=== PATIENT | male | born 1950 | race Caucasian/White ===

== ENCOUNTER 2019-09-01 11:04 | Observation (INO) ==
[2019-09-01 13:22] VITALS: BMI 45.1
[2019-09-01] MEDS ORDERED: HumuLIN R SC PRN (13:42)
[2019-09-01] MEDS: LASIX IVP SCH ×2 (14:15→20:18)
[2019-09-01 14:21] LABS: BASOPHILS % (AUTO) 0.6 % (0.2-1.0); EOSINOPHILS % (AUTO) 0.8 % (0.9-2.9); HEMATOCRIT 30.6 % (42.0-54.0); HEMOGLOBIN 10.3 g/dL (13.5-18.0); LYMPHOCYTES # (AUTO) 0.3 X10^3/uL (1.3-2.9); LYMPHOCYTES % (AUTO) 14.2 % (21.0-51.0); MEAN CORPUSCULAR HEMOGLOBIN 34.3 pg (27.0-34.0); MEAN CORPUSCULAR HGB CONC 33.8 g/dL (33.0-35.0); MEAN CORPUSCULAR VOLUME 101.3 fL (80.0-100.0); MEAN PLATELET VOLUME 8.8 fL (7.4-11.0); MONOCYTES # (AUTO) 0.3 x10^3/uL (0.3-0.8); MONOCYTES % (AUTO) 13.6 % (0.0-13.0); NEUTROPHILS # (AUTO) 1.7 x10^3/uL (2.2-4.8); NEUTROPHILS % (AUTO) 70.8 % (42.0-75.0); PLATELET COUNT 141 X10^3/uL (150.0-450.0); RED BLOOD COUNT 3.01 X10^6/uL (4.7-6.0); RED CELL DISTRIBUTION WIDTH 16.3 % (11.6-16.5); WHITE BLOOD COUNT 2.4 X10^3/uL (3.6-10.0)
--- NOTE | 2019-09-01 14:31 | RAD ---
HISTORY: CHF. Prior history of COPD, hypertension and CHF. Prior surgical history of CABG, heart valve and spine surgery. Study: Single-view chest Comparison: 08/11/2019. Findings: There are again changes of CABG median sternotomy sutures. The trachea is midline. Examination is very expiratory with accentuation of transverse cardiac diameter and crowding of bronchovascular markings. There is cardiomegaly. Mild pulmonary vascular congestion is seen. No evidence CHF or consolidation is seen. There is no evidence of pleural fluid or pneumothorax. Osseous structures intact. IMPRESSION: Postsurgical changes as noted above. Cardiomegaly and pulmonary vascular congestion. Both of these findings are likely accentuated by the very expiratory phase of the chest image. No consolidation or CHF is seen. Reported By:
[2019-09-01 14:36] LABS: BAND NEUTROPHILS % 2 % (0-10); PLATELET MORPHOLOGY COMMENT NORMAL (NORMAL)
[2019-09-01 14:44] LABS: ABG BASE EXCESS 10.5 mmol/L (-2.0-2.0)
[2019-09-01 14:44] LABS: ALANINE AMINOTRANSFERASE 39 Units/L (12-78); ALBUMIN 3.2 g/dL (3.4-5.0); ALKALINE PHOSPHATASE 69 Units/L (46-116); ASPARTATE AMINO TRANSFERASE 39 Units/L (15-37); BLOOD UREA NITROGEN 17 mg/dL (7-18); CALCIUM 8.5 mg/dL (8.5-10.1); CARBON DIOXIDE 35.1 mmol/L (21-32); CHLORIDE 100 mmol/L (98-107); CKMB % 1.5 % (<4); COR CA(FOR HYPOALB) 9.1 mg/dL (8.5-10.1); CREATINE KINASE 68 Units/L (39-308); CREATINE KINASE MB < 1.0 ng/mL (0-4.0); CREATININE 0.96 mg/dL (0.70-1.30); SODIUM 137 mmol/L (136-145); TOTAL PROTEIN 6.3 g/dL (6.4-8.2); TROPONIN I < 0.02 ng/mL (0-1.5); eGFR NON BLACK RACES > 60 (>60)
[2019-09-01 14:45] LABS: ABG ALLEN TEST POS; ABG HCO3 35.7 mmol/L (22-26)
[2019-09-01 16:31] LABS: BILIRUBIN,URINE NEGATIVE (NEGATIVE); BLOOD/HEMOGLOBIN,URINE NEGATIVE (NEGATIVE); GLUCOSE, URINE NEGATIVE (NEGATIVE); KETONES,URINE NEGATIVE (NEGATIVE); LEUKOCYTE ESTERASE ,URINE NEGATIVE (NEGATIVE); NITRITES,URINE NEGATIVE (NEGATIVE); PROTEIN,URINE NEGATIVE (NEGATIVE); UROBILINOGEN,URINE NORMAL (NORMAL)
[2019-09-01 16:34] LABS: APPEARANCE,URINE CLEAR (CLEAR); COLOR,URINE YELLOW (YELLOW)
[2019-09-01] MEDS ORDERED: MAALOX or MYLANTA PO PRN (17:55)
[2019-09-01] MEDS: PROTONIX TAB 40 MG PO SCH (20:16)
[2019-09-01] MEDS: METHADONE HCL PO SCH (20:16)
[2019-09-01] MEDS: FERROUS GLUCONATE PO SCH (20:16)
[2019-09-01] MEDS: FLOMAX PO SCH (20:16)
[2019-09-01] MEDS: LIPITOR TAB 40 MG PO SCH (20:17)
[2019-09-01] MEDS: PLAQUENIL PO SCH (20:17)
[2019-09-01] MEDS: PREDNISONE TAB 5 MG PO SCH (20:17)
[2019-09-01] MEDS: NORCO 10/325 TAB PO PRN (20:23)
[2019-09-01] MEDS: LOPRESSOR TAB 25 MG PO SCH (20:24)
[2019-09-01] MEDS: SNACK - Diabetic Appropriate PO SCH (20:25)
[2019-09-01] MEDS ORDERED: TOUJEO SOLOSTAR PEN SC SCH (21:00)
[2019-09-01] MEDS: NEURONTIN CAP 300 MG PO SCH (21:01)
[2019-09-01 22:14] LABS: CKMB % 1.5 % (<4); CREATINE KINASE 67 Units/L (39-308); CREATINE KINASE MB < 1.0 ng/mL (0-4.0); TROPONIN I 0.03 ng/mL (0-1.5)
[2019-09-02 05:26] LABS: BASOPHILS % (AUTO) 0.1 % (0.2-1.0); EOSINOPHILS % (AUTO) 1.3 % (0.9-2.9); HEMATOCRIT 28.3 % (42.0-54.0); HEMOGLOBIN 9.6 g/dL (13.5-18.0); LYMPHOCYTES # (AUTO) 0.5 X10^3/uL (1.3-2.9); MEAN CORPUSCULAR HEMOGLOBIN 34.4 pg (27.0-34.0); MEAN CORPUSCULAR HGB CONC 33.8 g/dL (33.0-35.0); MEAN CORPUSCULAR VOLUME 101.6 fL (80.0-100.0); MONOCYTES # (AUTO) 0.4 x10^3/uL (0.3-0.8); MONOCYTES % (AUTO) 16.6 % (0.0-13.0); NEUTROPHILS # (AUTO) 1.3 x10^3/uL (2.2-4.8); PLATELET COUNT 133 X10^3/uL (150.0-450.0); RED BLOOD COUNT 2.78 X10^6/uL (4.7-6.0); RED CELL DISTRIBUTION WIDTH 16.1 % (11.6-16.5); WHITE BLOOD COUNT 2.2 X10^3/uL (3.6-10.0)
[2019-09-02 05:53] LABS: PLATELET MORPHOLOGY COMMENT NORMAL (NORMAL)
[2019-09-02 06:03] LABS: ALANINE AMINOTRANSFERASE 32 Units/L (12-78); ALBUMIN 2.8 g/dL (3.4-5.0); ALKALINE PHOSPHATASE 60 Units/L (46-116); ASPARTATE AMINO TRANSFERASE 38 Units/L (15-37); BLOOD UREA NITROGEN 15 mg/dL (7-18); CALCIUM 7.9 mg/dL (8.5-10.1); CARBON DIOXIDE 36.7 mmol/L (21-32); CHLORIDE 100 mmol/L (98-107); COR CA(FOR HYPOALB) 8.9 mg/dL (8.5-10.1); COR NA(FOR HYPERGLY) 141 mmol/L (136-145); CREATINE KINASE 50 Units/L (39-308); CREATINE KINASE MB < 1.0 ng/mL (0-4.0); CREATININE 0.94 mg/dL (0.70-1.30); SODIUM 140 mmol/L (136-145); TOTAL PROTEIN 5.8 g/dL (6.4-8.2); TROPONIN I 0.03 ng/mL (0-1.5); eGFR NON BLACK RACES > 60 (>60)
[2019-09-02] MEDS: NEURONTIN CAP 300 MG PO SCH ×3 (06:04→21:01)
[2019-09-02] MEDS: LASIX IVP SCH ×2 (08:50→21:00)
[2019-09-02] MEDS: ALDACTONE TAB 25 MG PO SCH (08:54)
[2019-09-02] MEDS: PROTONIX TAB 40 MG PO SCH ×2 (08:55→21:01)
[2019-09-02] MEDS: PLAQUENIL PO SCH ×2 (08:55→21:01)
[2019-09-02] MEDS: ASPIRIN 81 MG CHEWTAB PO SCH (08:55)
[2019-09-02] MEDS: ZYLOPRIM PO SCH (08:55)
[2019-09-02] MEDS: TAB-A-VITE PO SCH (08:56)
[2019-09-02] MEDS: FERROUS GLUCONATE PO SCH ×2 (08:56→21:01)
[2019-09-02] MEDS: FOLIC ACID TAB 1 MG PO SCH (08:56)
[2019-09-02] MEDS: LOPRESSOR TAB 25 MG PO SCH ×2 (08:56→21:01)
[2019-09-02] MEDS: PREDNISONE TAB 5 MG PO SCH ×2 (08:56→21:01)
[2019-09-02] MEDS: MICRO K EXTEN CAP 10 MEQ PO SCH (08:56)
[2019-09-02] MEDS: METHADONE HCL PO SCH ×2 (08:57→21:00)
[2019-09-02] MEDS: PLAVIX PO SCH (08:57)
[2019-09-02] MEDS ORDERED: TOUJEO SOLOSTAR PEN SC SCH (09:00)
[2019-09-02] MEDS: NORCO 10/325 TAB PO PRN ×2 (09:07→19:42)
[2019-09-02 09:56] LABS: IRON 40 ug/dL (50-175)
[2019-09-02] MEDS: LEVSIN/MAALOX/LIDOC VISC PO PRN ×2 (10:45→19:34)
[2019-09-02] MEDS: TOUJEO SOLOSTAR PEN SC SCH (10:49)
--- NOTE | 2019-09-02 10:49 | RAD ---
HISTORY: Abdominal distend Study: KUB Comparison: Left/. Findings: There are postsurgical changes present involving the lower lumbar spine with bilateral pedicle screws and rods at L5-S1. There are IVC filters in the para lumbar regions bilaterally at L3-4. These findings are unchanged from prior studies. There is very mild gaseous distention of the transverse colon. Air is present throughout the colon including the rectum. Mild fluid distention of small bowel loops is present in the right abdomen. This is a nonspecific finding. No evidence of bowel obstruction is seen. There is no evidence of opaque stone. IMPRESSION: No bowel obstruction seen. Reported By:
[2019-09-02] MEDS: COUMADIN TAB 7.5 MG PO SCH (13:13)
[2019-09-02] MEDS: KLONOPIN TAB 1 MG PO PRN ×2 (13:45→22:32)
--- NOTE | 2019-09-02 17:26 | DR.H&P ---
H&P - History & Physical for Day of: H&P Date: 09/01/19 - Chief Complaint Chief Complaint: SOB, SWELLING - History of Present Illness History of Present Illness: PT 68 WM DIRECT ADMIT PER DR MCCARTY FOR TREATMENT OF INCREASED SOB, UNINTENTIONAL WEIGHT GAIN, LOWER EXTREMITY SWELLING, CHF EXACERBATION. PT REPORTS HX OF COPD, CHF, HEART VAVLE REPLACEMENT ON COUMADIN THERAPY. PT STATES HIS PCP IS DR ALY. PT REPORT HE IS DM, ON TOUJEO FOR BS CONTROL. PT REPORTS HE HAS GAINED "30LBS THIS MONTH" - Past Medical History Past Medical History: Hypertension, Anxiety, COPD, GERD, Arthritis, Gout - Past Surgical History Surgical History: Ortho Surgery - Family History Family Medical History: Diabetes Mellitus - Social History Does patient currently use any type of tobacco product: No Alcohol Use: None Drug Use: None, Prescription Drugs - Medications Home Medications: minocycline Allergy (Verified 08/11/19 19:32) rifampin Allergy (Verified 08/11/19 19:32) CONTINUE taking the following medications allopurinol 100 mg PO DAILY 09/01/19 [History] ferrous sulfate 324 mg PO BID 09/01/19 [History] folic acid 1 mg PO DAILY 09/01/19 [History] potassium chloride 10 meq PO DAILY 09/01/19 [History] - Review of Systems Constitutional: Weakness Eyes: No Symptoms Reported ENT: No Symptoms Reported Respiratory: Shortness of Breath Cardiovascular: Edema Gastrointestinal: denies: Abdominal Pain Genitourinary: Frequency Musculoskeletal: Back Pain, Leg Pain Skin: No Symptoms Reported Neurological: Weakness - Physical Exam Vital Signs: Temperature 97.6 F Pulse Rate 62 Respiratory Rate 23 Blood Pressure [Left Arm] 181/78 Blood Pressure 138/63 O2 Sat by Pulse Oximetry 90 Oriented: Normal Eyes: Normal Ear: Normal Nose: Normal Throat: Normal Respiratory: Diminished Throughout, RLL Diminished, LLL Diminished Cardiovascular: Normal, Irregular, Murmur Auscultation: Bowel Sounds: Normal Palpation: Other (OBESE, DISTENDED) Tenderness: Normal Skin: Decreased Turgur Musculoskeletal: Right, Left, Leg, Back:Thoracic, Back:Lumbar, Swelling, Tender Psychiatric: Anxiety Affect: Anxious Speech Pattern: Clear, Appropriate - Assessment/Plan (1) SOB (shortness of breath) Status: Acute Plan: ADMIT, ICU CARDIAC ENZYMES. STRICT I& OS, SUPPLEMENTAL O2. RESP CONSULT, CONTINUOUS CARDIAC MONITORING. RICHARD, BP CONTROL, BS CONTROL. VERIFY HOME MEDICATION, CHRONIC PAIN CONTROL (2) CHF (congestive heart failure) Status: Acute (3) Hypertension Status: Acute (4) Abnormal weight gain Status: Acute (5) Diabetes Status: Acute - Allergies Allergies/Adverse Reactions: Allergies Allergy/AdvReac Type Severity Reaction Status Date / Time minocycline Allergy Verified 08/11/19 19:32 rifampin Allergy Verified 08/11/19 19:32
--- NOTE | 2019-09-02 17:50 | PCM.PROG ---
Progress Note - Progress Note for Day of Date of Exam: 09/02/19 - Subjective Subjective: PT IS 68 WM ADMITTED ON 09/01 WITH CHF EXACERBATION. PT IS CURRENTLY RECEIVING IV LASIX WITH STRICT I & OS, SUPPLEMENTAL O2. CONTINUE CARDIAC MONITORING, HOLDING COUMADIN , REPEAT INR ORDERED PLAN TO RESUME TONIGHTS DOSE, PT HAS ARTIFICIAL HEART VALVE. PT HAS BILATERAL LOWER EXTREMITY EDEMA, WORSE ON RLE. PT HAS ABDOMINAL DISTENTION WITHOUT TENDERNESS. ECHO ORDERED FOR THIS AM. PT CO LOWER BACK PAIN, PT HAD CHRONIC DDD HX OF MULTIPLE SURGERIES. PT PAIN MEDICATION RESUMED - Past Medical Family Social History Past Med/Fam/Surg Hx: No changes since H&P Allergies: Allergies minocycline Allergy (Verified 08/11/19 19:32) rifampin Allergy (Verified 08/11/19 19:32) - Review of Systems ROS: No change since H&P - Vital Signs and I&O's Vital Signs: Temperature 98.0 F Pulse Rate 62 Respiratory Rate 28 Blood Pressure [Left Arm] 181/78 Blood Pressure 153/81 O2 Sat by Pulse Oximetry 99 Intake and Output: Intake & Output 08/31/19 09/01/19 09/02/19 09/03/19 11:59 11:59 11:59 11:59 Intake Total 1260 / 1260 Output Total 2550 / 2550 Balance -1290 / -1290 - Physical Exam Oriented: Normal Eyes: Normal Ear: Normal Nose: Normal Throat: Normal Respiratory: Diminished Cardiovascular: Normal, Irregular, Murmur Auscultation: Bowel Sounds: Normal Tenderness: Normal Skin: Decreased Turgur Musculoskeletal: Right, Left, Leg, Back:Thoracic, Back:Lumbar, Swelling, Tender Psychiatric: Anxiety Affect: Anxious Speech Pattern: Clear, Appropriate - Laboratory and Diagnostics Result Diagrams: 09/02/19 04:26 09/02/19 04:26 Labs: 09/01/19 16:10 Urine,Clean Catch Urine Culture - Preliminary Laboratory WBC 2.2 X10^3/uL (3.6-10.0) L 09/02/19 04:26 RBC 2.78 X10^6/uL (4.7-6.0) L 09/02/19 04:26 Hgb 9.6 g/dL (13.5-18.0) L 09/02/19 04:26 Hct 28.3 % (42.0-54.0) L 09/02/19 04:26 MCV 101.6 fL (80.0-100.0) H 09/02/19 04:26 MCH 34.4 pg (27.0-34.0) H 09/02/19 04:26 MCHC 33.8 g/dL (33.0-35.0) 09/02/19 04:26 RDW 16.1 % (11.6-16.5) 09/02/19 04:26 Plt Count 133 X10^3/uL (150.0-450.0) L 09/02/19 04:26 Plt Count Comment Adequate (ADEQUATE) 09/02/19 04:26 MPV 9.0 fL (7.4-11.0) 09/02/19 04:26 Neut % (Auto) 59.0 % (42.0-75.0) 09/02/19 04:26 Lymph % (Auto) 23.0 % (21.0-51.0) 09/02/19 04:26 Long % (Auto) 16.6 % (0.0-13.0) H 09/02/19 04:26 Eos % (Auto) 1.3 % (0.9-2.9) 09/02/19 04:26 Baso % (Auto) 0.1 % (0.2-1.0) L 09/02/19 04:26 Neut # (Auto) 1.3 x10^3/uL (2.2-4.8) L 09/02/19 04:26 Lymph # (Auto) 0.5 X10^3/uL (1.3-2.9) L 09/02/19 04:26 Long # (Auto) 0.4 x10^3/uL (0.3-0.8) 09/02/19 04:26 Eos # (Auto) 0.0 x10^3/uL (0.0-0.2) 09/02/19 04:26 Baso # (Auto) 0.0 X10^3/uL (0.0-0.1) 09/02/19 04:26 Absolute Nucleated RBC 0.5 /100WBC 09/02/19 04:26 Total Counted 100 09/02/19 04:26 Neutrophils % (Manual) 70 % (39-76) 09/02/19 04:26 Band Neutrophils % 2 % (0-10) 09/01/19 14:00 Lymphocytes % (Manual) 16 % (13-43) 09/02/19 04:26 Monocytes % (Manual) 14 % (4-9) H 09/02/19 04:26 Eosinophils % (Manual) 2 % (0-6) 09/01/19 14:00 Plt Morphology Comment Normal (NORMAL) 09/02/19 04:26 RBC Morphology Normal (NORMAL) 09/02/19 04:26 PT 28.9 SECONDS (11.8-14.3) 09/02/19 08:47 INR Target Range - 09/02/19 08:47 INR 2.84 (0.8-1.3) H 09/02/19 08:47 Sample Site Lr 09/01/19 14:38 ABG pH 7.470 (7.35-7.45) H 09/01/19 14:38 ABG pCO2 49.0 mmHg (35.0-45.0) H 09/01/19 14:38 ABG pO2 68.0 mmHg (80.0-100.0) L 09/01/19 14:38 ABG HCO3 35.7 mmol/L (22-26) H* 09/01/19 14:38 ABG O2 Saturation 94.0 % (90-100) 09/01/19 14:38 ABG Base Excess 10.5 mmol/L (-2.0-2.0) H 09/01/19 14:38 Jak Test Pos 09/01/19 14:38 A-a Gradient 20.0 mmHg 09/01/19 14:38 FiO2 21.0 09/01/19 14:38 Blood Gas Comments Pt [email or web address] 09/01/19 14:38 Sodium 140 mmol/L (136-145) 09/02/19 04:26 Corrected Sodium 141 mmol/L (136-145) 09/02/19 04:26 Potassium 3.4 mmol/L (3.5-5.1) L 09/02/19 04:26 Chloride 100 mmol/L (98-107) 09/02/19 04:26 Carbon Dioxide 36.7 mmol/L (21-32) H 09/02/19 04:26 BUN 15 mg/dL (7-18) 09/02/19 04:26 Creatinine 0.94 mg/dL (0.70-1.30) 09/02/19 04:26 Est GFR (MDRD) Af Amer > 60 (>60) 09/02/19 04:26 Est GFR (MDRD) Non-Af > 60 (>60) 09/02/19 04:26 Glucose 132 mg/dL (65-99) H 09/02/19 04:26 POC Glucose (mg/dL) 102 mg/dL (65-99) H 09/02/19 17:13 Calcium 7.9 mg/dL (8.5-10.1) L 09/02/19 04:26 Corrected Calcium 8.9 mg/dL (8.5-10.1) 09/02/19 04:26 Iron 40 ug/dL (50-175) L 09/02/19 08:47 Transferrin 218 mg/dL (202-364) 09/02/19 08:47 Ferritin 273 ng/mL (26-388) 09/02/19 08:47 Total Bilirubin 0.40 mg/dL (0.2-1.0) 09/02/19 04:26 AST 38 Units/L (15-37) H 09/02/19 04:26 ALT 32 Units/L (12-78) 09/02/19 04:26 Alkaline Phosphatase 60 Units/L (46-116) 09/02/19 04:26 Creatine Kinase 50 Units/L (39-308) 09/02/19 04:26 CK-MB (CK-2) < 1.0 ng/mL (0-4.0) 09/02/19 04:26 CK/CKMB % Calc 2.0 % (<4) 09/02/19 04:26 Troponin I 0.03 ng/mL (0-1.5) 09/02/19 04:26 B-Natriuretic Peptide 140 pg/mL (0-79) H 09/01/19 14:00 Total Protein 5.8 g/dL (6.4-8.2) L 09/02/19 04:26 Albumin 2.8 g/dL (3.4-5.0) L 09/02/19 04:26 Globulin 3.0 g/dL (2.5-4.5) 09/02/19 04:26 Albumin/Globulin Ratio 0.9 Ratio (1.1-2.1) L 09/02/19 04:26 Vitamin B12 > 2000 pg/mL (193-986) H 09/02/19 08:47 Folate > 20.0 ng/mL (>8.6) 09/02/19 08:47 Specimen Type Clean catch urine 09/01/19 16:10 Urine Color Yellow (YELLOW) 09/01/19 16:10 Urine Appearance Clear (CLEAR) 09/01/19 16:10 Urine pH 8.0 (5.0 - 8.0) 09/01/19 16:10 Ur Specific [place] 1.015 (1.000-1.030) 09/01/19 16:10 Urine Protein Negative (NEGATIVE) 09/01/19 16:10 Urine Glucose (UA) Negative (NEGATIVE) 09/01/19 16:10 Urine Ketones Negative (NEGATIVE) 09/01/19 16:10 Urine Occult Blood Negative (NEGATIVE) 09/01/19 16:10 Urine Nitrite Negative (NEGATIVE) 09/01/19 16:10 Urine Bilirubin Negative (NEGATIVE) 09/01/19 16:10 Urine Urobilinogen Normal (NORMAL) 09/01/19 16:10 Ur Leukocyte Esterase Negative (NEGATIVE) 09/01/19 16:10 - Plan (1) SOB (shortness of breath) Status: Acute Plan: SERIAL CARDIAC ENZYMES ON ADMISSION. STRICT I& OS, SUPPLEMENTAL O2, IV LASIX, PT INR. RESP CONSULT, CONTINUOUS CARDIAC MONITORING. CE, BP CONTROL, BS CONTROL. VERIFY HOME MEDICATION, CHRONIC PAIN CONTROL (2) CHF (congestive heart failure) Status: Acute (3) Hypertension Status: Acute (4) Abnormal weight gain Status: Acute (5) Diabetes Status: Acute
[2019-09-02] MEDS: FLOMAX PO SCH (21:01)
[2019-09-02] MEDS: LIPITOR TAB 40 MG PO SCH (21:01)
[2019-09-02] MEDS: SNACK - Diabetic Appropriate PO SCH (21:02)
[2019-09-03] MEDS: NEURONTIN CAP 300 MG PO SCH (05:56)
[2019-09-03 05:58] LABS: BASOPHILS % (AUTO) 0.2 % (0.2-1.0); EOSINOPHILS % (AUTO) 1.1 % (0.9-2.9); HEMATOCRIT 28.8 % (42.0-54.0); HEMOGLOBIN 9.9 g/dL (13.5-18.0); LYMPHOCYTES # (AUTO) 0.5 X10^3/uL (1.3-2.9); LYMPHOCYTES % (AUTO) 16.4 % (21.0-51.0); MEAN CORPUSCULAR HEMOGLOBIN 34.4 pg (27.0-34.0); MEAN CORPUSCULAR HGB CONC 34.2 g/dL (33.0-35.0); MEAN CORPUSCULAR VOLUME 100.6 fL (80.0-100.0); MEAN PLATELET VOLUME 8.8 fL (7.4-11.0); MONOCYTES # (AUTO) 0.4 x10^3/uL (0.3-0.8); MONOCYTES % (AUTO) 14.4 % (0.0-13.0); NEUTROPHILS % (AUTO) 67.9 % (42.0-75.0); PLATELET COUNT 164 X10^3/uL (150.0-450.0); RED BLOOD COUNT 2.87 X10^6/uL (4.7-6.0); RED CELL DISTRIBUTION WIDTH 15.6 % (11.6-16.5)
--- NOTE | 2019-09-03 06:00 | RAD ---
HISTORY: Shortness of breath Study: Chest AP portable Comparison: 09/01/2019 Findings: Patient is rotated to the right. Patient is status post median sternotomy. The heart remains enlarged. No congestive heart failure is noted. The lungs remain hypo inflated but free of acute alveolar infiltrates. No pleural effusions are identified. There is some subsegmental atelectasis in the left costophrenic angle. The bony thorax is unremarkable. IMPRESSION: Continued cardiomegaly but without congestive heart failure Lungs hypo inflated but free of acute infiltrates Reported By:
[2019-09-03 06:22] LABS: ALANINE AMINOTRANSFERASE 30 Units/L (12-78); ALBUMIN 2.9 g/dL (3.4-5.0); ALKALINE PHOSPHATASE 64 Units/L (46-116); ASPARTATE AMINO TRANSFERASE 34 Units/L (15-37); BLOOD UREA NITROGEN 16 mg/dL (7-18); CALCIUM 8.1 mg/dL (8.5-10.1); CARBON DIOXIDE 35.4 mmol/L (21-32); CHLORIDE 102 mmol/L (98-107); COR NA(FOR HYPERGLY) 141 mmol/L (136-145); CREATININE 1.03 mg/dL (0.70-1.30); SODIUM 141 mmol/L (136-145); TOTAL PROTEIN 5.8 g/dL (6.4-8.2); eGFR NON BLACK RACES > 60 (>60)
--- NOTE | 2019-09-03 07:36 | VAS ---
HISTORY: Right lower extremity edema Study: Right lower extremity venous Doppler Comparison: None Technique: Multiple grayscale sonographic images were obtained. Color duplex Doppler evaluation was performed Findings: The common femoral vein, superficial femoral vein, popliteal vein, and tibial veins appear patent demonstrating normal compression, flow and augmentation. IMPRESSION: Exam negative for deep venous thrombosis right lower extremity Reported By:
[2019-09-03] MEDS: ALDACTONE TAB 25 MG PO SCH (09:25)
[2019-09-03] MEDS: ASPIRIN 81 MG CHEWTAB PO SCH (09:25)
[2019-09-03] MEDS: MICRO K EXTEN CAP 10 MEQ PO SCH (09:26)
[2019-09-03] MEDS: FERROUS GLUCONATE PO SCH (09:26)
[2019-09-03] MEDS: FOLIC ACID TAB 1 MG PO SCH (09:27)
[2019-09-03] MEDS: LOPRESSOR TAB 25 MG PO SCH (09:27)
[2019-09-03] MEDS: TAB-A-VITE PO SCH (09:28)
[2019-09-03] MEDS: LASIX IVP SCH ×2 (09:28→11:45)
[2019-09-03] MEDS: PLAQUENIL PO SCH (09:28)
[2019-09-03] MEDS: PROTONIX TAB 40 MG PO SCH (09:29)
[2019-09-03] MEDS: ZYLOPRIM PO SCH (09:30)
[2019-09-03] MEDS: METHADONE HCL PO SCH (09:31)
[2019-09-03] MEDS: LEVSIN/MAALOX/LIDOC VISC PO PRN (09:32)
[2019-09-03] MEDS: PLAVIX PO SCH (09:32)
[2019-09-03] MEDS: NORCO 10/325 TAB PO PRN (09:33)
[2019-09-03] MEDS: TOUJEO SOLOSTAR PEN SC SCH (09:36)
[2019-09-03] MEDS: PREDNISONE TAB 5 MG PO SCH (11:10)
[2019-09-03] MEDS: KLONOPIN TAB 1 MG PO PRN (11:10)
[2019-09-03] MEDS ORDERED: LASIX PO ONE (11:30)
[2019-09-03 11:42] VITALS: BP 130/62
[2019-09-03] MEDS: COUMADIN TAB 7.5 MG PO SCH (11:45)
[2019-09-05] MEDS ORDERED: COUMADIN TAB 5 MG PO SCH (09:00)
== END 2019-09-03 11:30 | disposition home or self-care (01) ==
LOC: ICU
PROVIDERS: ADMIT Internal Medicine; ATTEND Internal Medicine
CPT/HCPCS: 36415; 36600; 71010; 71045; 74000; 74018; 80053; 81003; 82550; 82553; 82607; 82728; 82746; 82803; 83540; 83735; 83880; 84466; 84484; 85025; 85610; 87086; 87088; 87186; 93005; 93306; 93971; 96374; 97162; A4222; S0109; G0378; J1940; J7512

== ENCOUNTER 2019-10-19 19:44 | Inpatient (IN) ==
[2019-10-19] MEDS ORDERED: LASIX IVP ONE (21:03)
--- NOTE | 2019-10-19 21:50 | DR.EXTPAIN ---
HPI Time seen Time Seen by Provider: 10/19/19 20:27 PCP Primary Care Physician: yancy HPI Comment HPI Comment: pt. c/o L foot pain and swelling in all extremities Complaint/Symptoms Chief Complaint Doctor Comments: Pt. denies orthopnea, diaphoresis, CP, N/V, or SOB. Chronic edema all extrmities Chief Complaint:: pt fell last week has bruising noted to lt foot pt has 3+pi tting edema to bilat lower extremities as well as hand Nurses notes reviewed Nurses Notes Review: Yes Source History Provided: Patient Mode of arrival Mode of Arrival: Wheelchair Timing Onset of Chief Complaint: 10/15/19 Context History of: None Associated signs and symptoms Associated Signs and Symptoms: Pain, Swelling and Bruising (L foot) PMH PMH Past Medical History: Yes Past Medical History: Anxiety, Arthritis, CHF, COPD, GERD, Gout and Hypertension Past Surgical History: Yes Surgical History: Ortho Surgery Family History History of Family Medical Conditions: Yes Family Medical History: Diabetes Mellitus Social History Does any household member use tobacco: No Alcohol Use: None Do you use any recreational Drugs:: No Lives With: Family infectious screening In the last 2 months have you had wt loss of >10#?: NO Have you had fever, night sweats or hemotysis?: No Have you traveled outside the country in the last 6 months?: No Isolation: Standard ROS Review of Systems Constitutional: No Symptoms Reported Eyes: No Symptoms Reported ENTM: No Symptoms Reported Respiratoy: No Symptoms Reported Cardiovascular: No Symptoms Reported and Edema (hands and feet) Gastrointestinal/Abdominal: No Symptoms Reported Genitourinary: No Symptoms Reported Neurological: No Symptoms Reported Musculoskeletal: No Symptoms Reported and Foot (L foot pain) Integumentary: No Symptoms Reported and Bruises (dorsum L foot) Hematologic/Lymphatic: No Symptoms Reported Endocrine: No Symptoms Reported Psychiatric: No Symptoms Reported All Other Systems: Reviewed and Negative PE Vital Signs Vitals: Temperature 97.4 F Pulse Rate 68 Respiratory Rate 33 Blood Pressure [Left Arm] 181/78 Blood Pressure 114/53 O2 Sat by Pulse Oximetry 97 General Limitations: No Limitations General Appearance: Alert and In No Apparent Distress Head Head Exam: Normal Inspection Eyes Eye exam: Normal Appearance ENT ENT Exam: Normal Exam Neck Neck Exam: Normal Inspection Chest Chest Inspection: Normal Inspection Respiratory Respiratory Exam: Normal Lung Sounds Bilat Respiratory Exam: Bilateral: Clear to Auscultation Cardiovascular Cardiovascular Exam: Regular Rate and Normal Rhythm Abdominal Exam Abdominal Exam: Normal Inspection, Normal Bowel Sounds and Soft Extremities Extremities Exam: Tenderness (dorsum L foot) and Edema Upper Extremities Hand Exam: Swelling (B/L) and Ecchymosis (abdominal wall (ifrom injections) and dorsum L foot) Back Back Exam: Normal Inspection Neurological Neurological Exam: Alert, Oriented X3 and CN II-XII Intact Psychiatric Psychiatric Exam: Normal Affect and Normal Mood Skin Skin Exam: Warm, Dry, Intact and Normal Color ROR Labs Reviewed Laboratory Results Reviewed?: Yes Result Diagrams: 10/19/19 22:00 10/19/19 22:00 Laboratory: WBC 9.5 X10^3/uL (3.6-10.0) 10/19/19 22:00 RBC 1.97 X10^6/uL (4.7-6.0) L 10/19/19 22:00 Hgb 6.6 g/dL (13.5-18.0) L* 10/19/19 22:00 Hct 19.1 % (42.0-54.0) L* 10/19/19 22:00 MCV 97.0 fL (80.0-100.0) 10/19/19 22:00 MCH 33.5 pg (27.0-34.0) 10/19/19 22:00 MCHC 34.6 g/dL (33.0-35.0) 10/19/19 22:00 RDW 15.5 % (11.6-16.5) 10/19/19 22:00 Plt Count 227 X10^3/uL (150.0-450.0) 10/19/19 22:00 MPV 9.6 fL (7.4-11.0) 10/19/19 22:00 Neut % (Auto) 82.2 % (42.0-75.0) H 10/19/19 22:00 Lymph % (Auto) 6.1 % (21.0-51.0) L 10/19/19 22:00 [place] % (Auto) 10.3 % (0.0-13.0) 10/19/19 22:00 Eos % (Auto) 1.1 % (0.9-2.9) 10/19/19 22:00 Baso % (Auto) 0.3 % (0.2-1.0) 10/19/19 22:00 Neut # (Auto) 7.8 x10^3/uL (2.2-4.8) H 10/19/19 22:00 Lymph # (Auto) 0.6 X10^3/uL (1.3-2.9) L 10/19/19 22:00 [place] # (Auto) 1.0 x10^3/uL (0.3-0.8) H 10/19/19 22:00 Eos # (Auto) 0.1 x10^3/uL (0.0-0.2) 10/19/19 22:00 Baso # (Auto) 0.0 X10^3/uL (0.0-0.1) 10/19/19 22:00 Absolute Nucleated RBC 0.1 /100WBC 10/19/19 22:00 Sodium 125 mmol/L (136-145) L* 10/19/19 22:00 Corrected Sodium 125 mmol/L (136-145) L 10/19/19 22:00 Potassium 4.0 mmol/L (3.5-5.1) 10/19/19 22:00 Chloride 86 mmol/L (98-107) L 10/19/19 22:00 Carbon Dioxide 34.0 mmol/L (21-32) H 10/19/19 22:00 BUN 121 mg/dL (7-18) H 10/19/19 22:00 Creatinine 4.95 mg/dL (0.70-1.30) H 10/19/19 22:00 Est GFR (MDRD) Af Amer 15 (>60) L 10/19/19 22:00 Est GFR (MDRD) Non-Af 13 (>60) L 10/19/19 22:00 Glucose 120 mg/dL (65-99) H 10/19/19 22:00 Calcium 8.9 mg/dL (8.5-10.1) 10/19/19 22:00 Corrected Calcium 10.0 mg/dL (8.5-10.1) 10/19/19 22:00 Total Bilirubin 0.30 mg/dL (0.2-1.0) 10/19/19 22:00 AST 33 Units/L (15-37) 10/19/19 22:00 ALT 25 Units/L (12-78) 10/19/19 22:00 Alkaline Phosphatase 64 Units/L (46-116) 10/19/19 22:00 Creatine Kinase 164 Units/L (39-308) 10/19/19 22:00 CK-MB (CK-2) 1.4 ng/mL (0-4.0) 10/19/19 22:00 CK/CKMB % Calc 0.9 % (<4) 10/19/19 22:00 Troponin I < 0.02 ng/mL (0-1.5) 10/19/19 22:00 Total Protein 5.3 g/dL (6.4-8.2) L 10/19/19 22:00 Albumin 2.6 g/dL (3.4-5.0) L 10/19/19 22:00 Globulin 2.7 g/dL (2.5-4.5) 10/19/19 22:00 Albumin/Globulin Ratio 1.0 Ratio (1.1-2.1) L 10/19/19 22:00 XRAY XRAY Interpreted by: Self XRAY Findings: L foot neg Fx CXR PA/Lat EKG Rate: 60 (Prolonged RI and prolonged QT) [place]: Normal Rhythm: PACs Block: None Hypertrophy: None ST: Normal Opioid Opioid Risk Tool Age (Momo box if 16-45): No History of Preadolescent Sexual Abuse: No Total: 0 Total Score Risk Category: Low Risk Copyright: Glenn MASSEY predicting aberrant behaviors Diagnosis Discharge Problem: Acute hyponatremia, Chronic kidney disease (CKD) stage G5/A1, glomerular filtration rate (GFR) less than or equal to 15 mL/min/1.73 square meter and albuminuria creatinine ratio less than 30 mg/g, Edema due to hypoalbuminemia, Anemia, Blood transfusion during current hospitalization, Prolonged Q-T interval on ECG ADDITIONAL NOTES Additional Notes Additional Notes: Critical Care time 48 minutes
[2019-10-19 22:12] LABS: BASOPHILS % (AUTO) 0.3 % (0.2-1.0); EOSINOPHILS # (AUTO) 0.1 x10^3/uL (0.0-0.2); EOSINOPHILS % (AUTO) 1.1 % (0.9-2.9); LYMPHOCYTES # (AUTO) 0.6 X10^3/uL (1.3-2.9); LYMPHOCYTES % (AUTO) 6.1 % (21.0-51.0); MEAN CORPUSCULAR HEMOGLOBIN 33.5 pg (27.0-34.0); MEAN CORPUSCULAR HGB CONC 34.6 g/dL (33.0-35.0); MEAN PLATELET VOLUME 9.6 fL (7.4-11.0); MONOCYTES % (AUTO) 10.3 % (0.0-13.0); NEUTROPHILS # (AUTO) 7.8 x10^3/uL (2.2-4.8); NEUTROPHILS % (AUTO) 82.2 % (42.0-75.0); PLATELET COUNT 227 X10^3/uL (150.0-450.0); RED BLOOD COUNT 1.97 X10^6/uL (4.7-6.0); RED CELL DISTRIBUTION WIDTH 15.5 % (11.6-16.5); WHITE BLOOD COUNT 9.5 X10^3/uL (3.6-10.0)
[2019-10-19 22:14] LABS: HEMATOCRIT 19.1 % (42.0-54.0); HEMOGLOBIN 6.6 g/dL (13.5-18.0)
--- NOTE | 2019-10-19 22:28 | RAD ---
HISTORYsobSTUDELIESER PA/LAT ADULTCOMPARISONDecember 2018FINDINGSThe trachea is midline. The cardiac silhouette is enlarged. The lungs are clear without focal infiltrate or effusion. The aortic knob is partially calcified. Postoperative changes of midline sternotomy are demonstrated. Numerous overlying leads are notedIMPRESSIONCardiomegaly.Electronically signed by: GENET FISCHER (Oct 19, 2019 22:27:19)
[2019-10-19 22:30] LABS: ALANINE AMINOTRANSFERASE 25 Units/L (12-78); ALBUMIN 2.6 g/dL (3.4-5.0); ALKALINE PHOSPHATASE 64 Units/L (46-116); ASPARTATE AMINO TRANSFERASE 33 Units/L (15-37); BLOOD UREA NITROGEN 121 mg/dL (7-18); CALCIUM 8.9 mg/dL (8.5-10.1); CHLORIDE 86 mmol/L (98-107); CKMB % 0.9 % (<4); COR NA(FOR HYPERGLY) 125 mmol/L (136-145); CREATINE KINASE 164 Units/L (39-308); CREATINE KINASE MB 1.4 ng/mL (0-4.0); CREATININE 4.95 mg/dL (0.70-1.30); TOTAL PROTEIN 5.3 g/dL (6.4-8.2); TROPONIN I < 0.02 ng/mL (0-1.5); eGFR NON BLACK RACES 13 (>60)
[2019-10-19 22:31] LABS: SODIUM 125 mmol/L (136-145)
[2019-10-20 00:11] LABS: IRON 39 ug/dL (50-175)
[2019-10-20] MEDS ORDERED: NS 500 ML IV 500 ML IV ONE (00:49)
[2019-10-20 01:19] LABS: BILIRUBIN,URINE NEGATIVE (NEGATIVE); BLOOD/HEMOGLOBIN,URINE NEGATIVE (NEGATIVE); GLUCOSE, URINE NEGATIVE (NEGATIVE); KETONES,URINE NEGATIVE (NEGATIVE); LEUKOCYTE ESTERASE ,URINE NEGATIVE (NEGATIVE); NITRITES,URINE NEGATIVE (NEGATIVE); PROTEIN,URINE NEGATIVE (NEGATIVE); UROBILINOGEN,URINE NORMAL (NORMAL)
[2019-10-20 01:36] LABS: APPEARANCE,URINE CLEAR (CLEAR); COLOR,URINE YELLOW (YELLOW)
--- NOTE | 2019-10-20 01:51 | CT ---
CT abdomen and pelvis without contrastIndication: Pain after fall.TECHNIQUEHelical images through the abdomen and pelvis without contrast. Coronal and sagittal reformats provided.COMPARISONNo recent similar priorFINDINGSLimited images through lower chest shows coronary artery calcifications, mitral valve calcifications and aortic valve calcifications. Postsurgical change with sternotomy noted. Mild peribronchial thickening seen in the lung bases. 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 Bilateral IVC filters are noted. Kidneys are atrophic without hydroureteronephrosis or stone. The liver appears cirrhotic in configuration. The spleen is normal. The pancreas and adrenal glands are normal. The stomach and small bowel are normal. Noninflamed colonic diverticular noted. Appendix is normal. Aortoiliac calcifications are notedPelvis: The urinary bladder and rectum are normal. Prostate gland is normal.IMPRESSION1. No acute abnormality to explain the patient's pain2. Cardiomegaly and post sternotomy change with mild peribronchial thickening in the lung bases. Bronchitis is possible.3. Colonic diverticulosis, mild renal atrophy, aortoiliac plaque, IVC filters and duplicated IVC, spine degenerative and postsurgical change, with other findings as above.4. Hepatic cirrhosis possible, with somewhat lobular appearing liver. Correlate with hepatic biochemical profile recommended.Electronically signed by: LAZARO PINEDA (Oct 20, 2019 01:49:50)
[2019-10-20 02:34] VITALS: BMI 47.9
--- NOTE | 2019-10-20 04:40 | RAD ---
Left foot three viewsIndication: Left foot swellingFINDINGSVascular calcifications of diabetes suggested. There is forefoot soft tissue swelling.There is no cortical lucency or malalignment. Enthesopathy seen calcaneus three viewsIMPRESSIONMarked forefoot soft tissue swelling. Cellulitis favored. Underlying abscess not excluded. Degenerative changes and vascular calcifications noted.Electronically signed by: LAZARO PINEDA (Oct 20, 2019 04:38:57)
[2019-10-20 04:48] LABS: BLOOD UREA NITROGEN 121 mg/dL (7-18); CARBON DIOXIDE 34.8 mmol/L (21-32); CHLORIDE 87 mmol/L (98-107); CHOL/HDL RATIO 3.1 (0.0-5.0); CHOLESTEROL 103 mg/dL (0-200); COR NA(FOR HYPERGLY) 128 mmol/L (136-145); CREATINE KINASE 149 Units/L (39-308); CREATINE KINASE MB 1.5 ng/mL (0-4.0); CREATININE 4.54 mg/dL (0.70-1.30); HDL CHOLESTEROL 33 mg/dL (40-60); SODIUM 127 mmol/L (136-145); TRIGLYCERIDES 155 mg/dL (0-150); TROPONIN I < 0.02 ng/mL (0-1.5); eGFR NON BLACK RACES 14 (>60)
[2019-10-20 06:21] LABS: BASOPHILS # (AUTO) 0.1 X10^3/uL (0.0-0.1); BASOPHILS % (AUTO) 0.6 % (0.2-1.0); EOSINOPHILS # (AUTO) 0.2 x10^3/uL (0.0-0.2); EOSINOPHILS % (AUTO) 2.5 % (0.9-2.9); HEMATOCRIT 21.5 % (42.0-54.0); HEMOGLOBIN 7.5 g/dL (13.5-18.0); LYMPHOCYTES # (AUTO) 0.6 X10^3/uL (1.3-2.9); LYMPHOCYTES % (AUTO) 7.8 % (21.0-51.0); MEAN CORPUSCULAR HEMOGLOBIN 33.1 pg (27.0-34.0); MEAN CORPUSCULAR HGB CONC 34.9 g/dL (33.0-35.0); MEAN CORPUSCULAR VOLUME 94.8 fL (80.0-100.0); MEAN PLATELET VOLUME 8.4 fL (7.4-11.0); MONOCYTES # (AUTO) 0.8 x10^3/uL (0.3-0.8); MONOCYTES % (AUTO) 9.5 % (0.0-13.0); NEUTROPHILS # (AUTO) 6.7 x10^3/uL (2.2-4.8); NEUTROPHILS % (AUTO) 79.6 % (42.0-75.0); PLATELET COUNT 215 X10^3/uL (150.0-450.0); RED BLOOD COUNT 2.27 X10^6/uL (4.7-6.0); RED CELL DISTRIBUTION WIDTH 15.6 % (11.6-16.5); WHITE BLOOD COUNT 8.4 X10^3/uL (3.6-10.0)
[2019-10-20 06:56] LABS: HYPOCHROMASIA SLIGHT; PLATELET MORPHOLOGY COMMENT NORMAL (NORMAL)
[2019-10-20] MEDS ORDERED: NS 250 ML IV 250 ML IV ONE ×2 (08:03→16:06)
[2019-10-20] MEDS ORDERED: BUMEX TAB 1 MG PO SCH (09:00)
[2019-10-20] MEDS ORDERED: LASIX IVP SCH ×2 (09:00→21:00)
[2019-10-20] MEDS ORDERED: HumuLIN R SUBCUT PRN (09:04)
[2019-10-20] MEDS: PROTONIX INJ 40 MG VIAL IVP SCH ×3 (09:46→20:05)
--- NOTE | 2019-10-20 10:41 | DR.H&P ---
H&P History & Physical for Day of: H&P Date: 10/20/19 Chief Complaint Chief Complaint: weakness, fatigue, AMS, fall Allergies Allergies Allergy/AdvReac Type Severity Reaction Status Date / Time minocycline Allergy Verified 08/11/19 19:32 rifampin Allergy Verified 08/11/19 19:32 History of Present Illness History of Present Illness: Mr. Marroquin is a 68y/o male with a PMH of CABG, Cirrhosis, CHF, hx of PE s/p IVC filter, mechanical mitral valve on warfarin pr esented with increased lower ext edema, weakness, fatigue and AMS. Patient was admitted last month for CHF exacerbation. Family reports patient has not been taking care of himself at home. He has gained a lot of weight in the last week. He's also been having falls. He was very weak and confused yesterday so he was brought to the ED. Patient sees cardiology Dr. Jones in [place]. Family member is not sure if patient has been taking his medications as prescribed. Patient denies any active bleeding or melena. ED work-up: - Hgb: 6.6 Cr: 4.95 INR: 3.24 Troponin x 2 (-) - CXR: cardiomegaly - CTAP: renal atrophy, IVC filters, cirrhosis - left foot XR: concerning for cellulitis Patient was given IV Lasix, blood transfusion was started. Past Medical History Past Medical History: Anemia, Anxiety, Arthritis, Cirrhosis, CHF, COPD, Coronary Artery Disease, GERD, Gout, Hypertension, Liver Disease and Renal Disease Past Surgical History Surgical History: CABG/Valve Surgery and Ortho Surgery Additional Surgical History: IVC filter Family History Family Medical History: Diabetes Mellitus Social History Does patient currently use any type of tobacco product: No Have you used tobacco products in the last 12 months: No Type of Tobacco Use: None Does any household member use tobacco: No Alcohol Use: None Drug Use: None Prescription drug monitoring program results: PDMP was not reviewed Medications Home Medications: minocycline Allergy (Verified 08/11/19 19:32) rifampin Allergy (Verified 08/11/19 19:32) CONTINUE taking the following medications aspirin [Aspir-81] 81 mg PO DAILY 10/19/19 [History] atorvastatin 40 mg PO QHS 10/19/19 [History] bumetanide 1 mg PO BID 10/19/19 [History] calcium 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 1 tab PO BID 10/19/19 [History] clonazepam 1 mg PO QHS PRN 10/19/19 [History] clopidogrel [Plavix] 75 mg PO DAILY 10/19/19 [History] ferrous sulfate 324 mg PO BID 10/19/19 [History] fluticasone propionate [Flonase Allergy Relief] 1 spray INTRANASAL Q12H PRN 10/19/19 [History] gabapentin 400 mg PO BID 10/19/19 [History] glimepiride [Amaryl] 4 mg PO QAM PRN 10/19/19 [History] hydrocodone-acetaminophen [[place]] 1 tab PO Q4-6H PRN 10/19/19 [History] hydroxychloroquine [Plaquenil] 200 mg PO BID 10/19/19 [History] insulin glargine U-300 conc [Toujeo SoloStar U-300 Insulin] 6 unit SUBCUT ONCE 10/19/19 [History] methadone 5 mg PO BID 10/19/19 [History] metoprolol tartrate 25 mg PO DAILY 10/19/19 [History] multivitamin [Multiple Vitamins] 1 tab PO QAM 10/19/19 [History] pantoprazole [Protonix] 40 mg PO BID 10/19/19 [History] potassium chloride 20 meq PO BID 10/19/19 [History] prednisolone 5 mg PO TID 10/19/19 [History] sarilumab [Kevzara] 150 mg SUBCUT Q2W 10/19/19 [History] spironolactone [Aldactone] 25 mg PO DAILY 10/19/19 [History] tamsulosin [Flomax] 0.4 mg PO QHS 10/19/19 [History] valsartan [Diovan] 80 mg PO DAILY 10/19/19 [History] vitamin D3-vitamin K2 1 tab PO BID 10/19/19 [History] warfarin [Coumadin] 5 mg PO DAILY 10/19/19 [History] warfarin [Coumadin] 7.5 mg PO DAILY 10/19/19 [History] Labs Result Diagrams: 10/20/19 06:14 10/20/19 03:40 Labs: Laboratory WBC 8.4 X10^3/uL (3.6-10.0) 10/20/19 06:14 RBC 2.27 X10^6/uL (4.7-6.0) L 10/20/19 06:14 Hgb 7.5 g/dL (13.5-18.0) L 10/20/19 06:14 Hct 21.5 % (42.0-54.0) L 10/20/19 06:14 MCV 94.8 fL (80.0-100.0) 10/20/19 06:14 MCH 33.1 pg (27.0-34.0) 10/20/19 06:14 MCHC 34.9 g/dL (33.0-35.0) 10/20/19 06:14 RDW 15.6 % (11.6-16.5) 10/20/19 06:14 Plt Count 215 X10^3/uL (150.0-450.0) 10/20/19 06:14 Plt Count Comment Adequate (ADEQUATE) 10/20/19 06:14 MPV 8.4 fL (7.4-11.0) 10/20/19 06:14 Neut % (Auto) 79.6 % (42.0-75.0) H 10/20/19 06:14 Lymph % (Auto) 7.8 % (21.0-51.0) L 10/20/19 06:14 [place] % (Auto) 9.5 % (0.0-13.0) 10/20/19 06:14 Eos % (Auto) 2.5 % (0.9-2.9) 10/20/19 06:14 Baso % (Auto) 0.6 % (0.2-1.0) 10/20/19 06:14 Neut # (Auto) 6.7 x10^3/uL (2.2-4.8) H 10/20/19 06:14 Lymph # (Auto) 0.6 X10^3/uL (1.3-2.9) L 10/20/19 06:14 [place] # (Auto) 0.8 x10^3/uL (0.3-0.8) 10/20/19 06:14 Eos # (Auto) 0.2 x10^3/uL (0.0-0.2) 10/20/19 06:14 Baso # (Auto) 0.1 X10^3/uL (0.0-0.1) 10/20/19 06:14 Absolute Nucleated RBC 0.1 /100WBC 10/20/19 06:14 Plt Morphology Comment Normal (NORMAL) 10/20/19 06:14 RBC Morphology Abnormal (NORMAL) 10/20/19 06:14 Hypochromasia Slight A 10/20/19 06:14 PT 32.1 SECONDS (11.8-14.3) 10/19/19 22:45 INR Target Range - 10/19/19 22:45 INR 3.24 (0.8-1.3) H 10/19/19 22:45 Sodium 127 mmol/L (136-145) L 10/20/19 03:40 Corrected Sodium 128 mmol/L (136-145) L 10/20/19 03:40 Potassium 3.4 mmol/L (3.5-5.1) L 10/20/19 03:40 Chloride 87 mmol/L (98-107) L 10/20/19 03:40 Carbon Dioxide 34.8 mmol/L (21-32) H 10/20/19 03:40 BUN 121 mg/dL (7-18) H 10/20/19 03:40 Creatinine 4.54 mg/dL (0.70-1.30) H 10/20/19 03:40 Est GFR (MDRD) Af Amer 17 (>60) L 10/20/19 03:40 Est GFR (MDRD) Non-Af 14 (>60) L 10/20/19 03:40 Glucose 123 mg/dL (65-99) H 10/20/19 03:40 POC Glucose (mg/dL) 131 mg/dL (65-99) H 10/20/19 05:43 Calcium 9.0 mg/dL (8.5-10.1) 10/20/19 03:40 Corrected Calcium Cancelled 10/19/19 22:45 Iron 39 ug/dL (50-175) L 10/19/19 22:45 Transferrin 227 mg/dL (202-364) 10/19/19 22:45 Ferritin 214 ng/mL (26-388) 10/19/19 22:45 Total Bilirubin Cancelled 10/19/19 22:45 AST Cancelled 10/19/19 22:45 ALT Cancelled 10/19/19 22:45 Alkaline Phosphatase Cancelled 10/19/19 22:45 Creatine Kinase 149 Units/L (39-308) 10/20/19 03:40 CK-MB (CK-2) 1.5 ng/mL (0-4.0) 10/20/19 03:40 CK/CKMB % Calc 1.0 % (<4) 10/20/19 03:40 Troponin I < 0.02 ng/mL (0-1.5) 10/20/19 03:40 Total Protein Cancelled 10/19/19 22:45 Albumin Cancelled 10/19/19 22:45 Globulin Cancelled 10/19/19 22:45 Albumin/Globulin Ratio Cancelled 10/19/19 22:45 Triglycerides 155 mg/dL (0-150) H 10/20/19 03:40 Cholesterol 103 mg/dL (0-200) 10/20/19 03:40 LDL Cholesterol, Calc 39 mg/dL (0-100) 10/20/19 03:40 HDL Cholesterol 33 mg/dL (40-60) L 10/20/19 03:40 Cholesterol/HDL Ratio 3.1 (0.0-5.0) 10/20/19 03:40 Vitamin B12 1573 pg/mL (193-986) H 10/19/19 22:45 Folate > 20.0 ng/mL (>8.6) 10/19/19 22:45 Specimen Type Catherized urine 10/20/19 00:40 Urine Color Yellow (YELLOW) 10/20/19 00:40 Urine Appearance Clear (CLEAR) 10/20/19 00:40 Urine pH 5.0 (5.0 - 8.0) 10/20/19 00:40 Ur Specific [place] 1.010 (1.000-1.030) 10/20/19 00:40 Urine Protein Negative (NEGATIVE) 10/20/19 00:40 Urine Glucose (UA) Negative (NEGATIVE) 10/20/19 00:40 Urine Ketones Negative (NEGATIVE) 10/20/19 00:40 Urine Occult Blood Negative (NEGATIVE) 10/20/19 00:40 Urine Nitrite Negative (NEGATIVE) 10/20/19 00:40 Urine Bilirubin Negative (NEGATIVE) 10/20/19 00:40 Urine Urobilinogen Normal (NORMAL) 10/20/19 00:40 Ur Leukocyte Esterase Negative (NEGATIVE) 10/20/19 00:40 Stool Description Ifob 10/19/19 23:17 Stl Occult Blood (IFOB) Positive (NEGATIVE) A 10/19/19 23:17 Blood Type A POSITIVE 10/19/19 22:45 Antibody Screen Negative 10/19/19 22:45 Crossmatch See Detail 10/19/19 22:45 Review of Systems Constitutional: Weakness and Malaise Cardiovascular: Edema and Light Headedness Gastrointestinal: No Symptoms Reported Genitourinary: No Symptoms Reported Musculoskeletal: Foot Pain Skin: No Symptoms Reported Neurological: Confusion Physical Exam Vital Signs: Temperature 98.1 F Pulse Rate [Left Brachial] 84 Pulse Rate 72 Respiratory Rate 20 Blood Pressure [Right Arm] 110/56 Blood Pressure [Left Arm] 181/78 Blood Pressure 114/53 O2 Sat by Pulse Oximetry 96 Oriented: Unable to test Respiratory: Diminished Throughout Cardiovascular: Normal and Edema Auscultation: Bowel Sounds: Decreased Palpation: Normal Tenderness: Normal Skin: Other (left foot swollen, warm and tender ) Musculoskeletal: Left and Foot Psychiatric: Normal Mood Description: Calm Affect: Normal Speech Pattern: Delayed Assessment/Plan (1) GI bleed: Qualifiers: GI bleed type/associated pathology: melena Qualified Code(s): K92.1 - Melena Status: Acute Plan: Hgb: 6.6, iFOB positive Surgery consulted Transfuse 1 more unit this AM, monitor H/H (2) Acute hyponatremia: Status: Acute Plan: improving, Na: 127 likely due to fluid overload Monitor AM labs (3) Anemia: Qualifiers: Anemia type: unspecified type Qualified Code(s): D64.9 - Anemia, unspecified Status: Acute Plan: Hgb: 6.6 on admission, received one unit of PRBCs, Hgb 7.5. He is currently receiving the 2nd unit. Anemia panel pending Stool occult positive Continue Protonix 40 mg BID Hold asa, Plavix and warfarin, monitor H/H Consult surgery for possible EGD to rule out active bleeding due to ulcer (4) CHF (congestive heart failure): Qualifiers: Heart failure chronicity: acute on chronic Heart failure type: systolic Qualified Code(s): I50.23 - Acute on chronic systolic (congestive) heart failure Status: Acute Plan: CXR: cardiomegaly, moderate-severe LE edema Will continue Lasix, strict I/Os, monitor BP Trop x 2 negative EF: 53% (5) Cirrhosis: Qualifiers: Ascites presence: unspecified Hepatic cirrhosis type: unspecified hepatic cirrhosis Qualified Code(s): K74.60 - Unspecified cirrhosis of liver Status: Acute (6) Cellulitis and abscess of foot: Status: Acute Plan: Left foot XR: concerning for cellulitis Get blood cultures, start Rocephin IV (7) MICH (acute kidney injury): Status: Acute Plan: Cr: 4.95 on admission, trending down 4.54 Likely due to fluid overload, CTAP shows mild renal atrophy Monitor AM labs (8) Fall: Qualifiers: Encounter type: initial encounter Qualified Code(s): W19.XXXA - Unspecified fall, initial encounter Status: Acute Plan: no acute fracture, dizziness due to anemia and hyponatremia Fall precautions, PT/OT when stable (9) Mechanical heart valve present: Status: Acute Plan: on coumadin, INR:3.24 on hold due to anemia and iFOB positive Follow up INR in the AM (10) Hx pulmonary embolism: Status: Acute Plan: has IVC filters and on coumadin which has been held due to concern for bleeding Review H&P Reviewed: Yes Patient was examined?: Yes
[2019-10-20] MEDS: ROCEPHIN VIAL 1 GRAM 1 G in NS 100 ML IV + SPIKE MINIBAG* 100 ML IV SCH (11:26)
[2019-10-20] MEDS: FERROUS GLUCONATE PO SCH ×2 (11:27→20:04)
[2019-10-20] MEDS: K-DUR TAB 20 MEQ PO SCH ×2 (11:27→20:04)
[2019-10-20] MEDS: LIPITOR TAB 40 MG PO SCH ×2 (11:28→20:04)
[2019-10-20 13:24] LABS: HEMATOCRIT 22.8 % (42.0-54.0)
[2019-10-20] MEDS: NS 1000 ML 1,000 ML IV SCH (15:08)
[2019-10-20] MEDS ORDERED: TYLENOL 325 MG TAB PO ONE (16:44)
[2019-10-20] MEDS ORDERED: KLONOPIN TAB 0.5 MG PO ONE (19:07)
[2019-10-20] MEDS ORDERED: SNACK - Diabetic Appropriate PO SCH (20:00)
[2019-10-21 04:24] LABS: BASOPHILS # (AUTO) 0.1 X10^3/uL (0.0-0.1); BASOPHILS % (AUTO) 0.3 % (0.2-1.0); CARBON DIOXIDE 32.5 mmol/L (21-32); CREATININE 2.47 mg/dL (0.70-1.30); EOSINOPHILS % (AUTO) 0.1 % (0.9-2.9); HEMATOCRIT 24.3 % (42.0-54.0); HEMOGLOBIN 8.3 g/dL (13.5-18.0); LYMPHOCYTES # (AUTO) 0.5 X10^3/uL (1.3-2.9); LYMPHOCYTES % (AUTO) 2.6 % (21.0-51.0); MEAN CORPUSCULAR HGB CONC 34.3 g/dL (33.0-35.0); MEAN CORPUSCULAR VOLUME 93.4 fL (80.0-100.0); MEAN PLATELET VOLUME 8.3 fL (7.4-11.0); MONOCYTES # (AUTO) 1.7 x10^3/uL (0.3-0.8); MONOCYTES % (AUTO) 9.7 % (0.0-13.0); NEUTROPHILS # (AUTO) 15.6 x10^3/uL (2.2-4.8); NEUTROPHILS % (AUTO) 87.3 % (42.0-75.0); PLATELET COUNT 213 X10^3/uL (150.0-450.0); RED CELL DISTRIBUTION WIDTH 15.5 % (11.6-16.5)
[2019-10-21 04:30] LABS: WHITE BLOOD COUNT 17.9 X10^3/uL (3.6-10.0)
[2019-10-21] MEDS: NS 1000 ML 1,000 ML IV SCH (05:42)
--- NOTE | 2019-10-21 06:03 | RAD ---
HISTORYShortness of breathSTUDYCHEST, 1 [id number] is status post median sternotomy. The heart is enlarged. There is now mild pulmonary venous congestion present. No interstitial edema, alveolar edema, alveolar infiltrates or pleural effusions are identified. The bony thorax is unremarkable.IMPRESSIONCardiomegaly now with mild pulmonary venous congestionElectronically signed by: JARAD VYAS (Oct 21, 2019 06:03:13)
[2019-10-21 07:24] LABS: AMMONIA < 10 umol/L (11-32)
[2019-10-21 07:32] LABS: LACTIC ACID 3.4 mmol/L (0.4-2.0)
[2019-10-21 08:13] LABS: ALBUMIN 2.3 g/dL (3.4-5.0); BILIRUBIN,DIRECT 0.4 mg/dL (0-0.2); TOTAL PROTEIN 4.5 g/dL (6.4-8.2)
[2019-10-21] MEDS ORDERED: LASIX IVP ONE (08:17)
[2019-10-21] MEDS ORDERED: LASIX ONE (08:18)
[2019-10-21] MEDS: ROCEPHIN VIAL 1 GRAM 1 G in NS 100 ML IV + SPIKE MINIBAG* 100 ML IV SCH (08:32)
[2019-10-21] MEDS: PROTONIX INJ 40 MG VIAL IVP SCH (08:32)
[2019-10-21] MEDS ORDERED: MEPHYTON PO ONE (08:33)
[2019-10-21] MEDS ORDERED: PLAQUENIL PO SCH (09:00)
[2019-10-21] MEDS ORDERED: LASIX IVP SCH (09:00)
[2019-10-21] MEDS ORDERED: NEURONTIN CAP 400 MG PO SCH (09:00)
[2019-10-21] MEDS ORDERED: METHADONE HCL PO SCH (09:00)
[2019-10-21] MEDS ORDERED: LOPRESSOR TAB 25 MG PO SCH (09:00)
[2019-10-21] MEDS: SOLU-Medrol 125 MG VIAL IVP SCH ×2 (09:17→14:00)
[2019-10-21] MEDS: K-DUR TAB 20 MEQ PO SCH (09:18)
[2019-10-21] MEDS: FERROUS GLUCONATE PO SCH (09:18)
--- NOTE | 2019-10-21 09:35 | PCM.PROG ---
Progress Note Progress Note for Day of Date of Exam: 10/21/19 Subjective Subjective: Patient seen at beside, shaking and reports increased SOB. Overnight, patient was agitated and restless, he was given clonazepam 0.5 mg as he takes it at home. His oxygenation worsened overnight, currently on 4L. CXR this AM showed mild pulmonary congestion. His urine is noted to have blood which was not present yesterday and his tongue and mouth also has blood. Family reports patient did not eat much yesterday. Patient able to answer questions, seems more awake and alert compared to yesterday. INR remains elevated at 3.49, coumadin has been on hold since admission. Lactic acid: 3.4, ammonia < 10. Cr trending down 2.47 today, patient had good urine output. Plan: will give another dose of Lasix 20 mg IV now, patient's BP has been on low. Give vitamin K for reversal, plan is to do EGD tomorrow if INR < 2 Start Solumedrol 60 mg q8 Resume home medications including gabapentin, metoprolol and methadone Past Medical Family Social History Past Med/Fam/Surg Hx: No changes since H&P Allergies: Allergies minocycline Allergy (Verified 08/11/19 19:32) rifampin Allergy (Verified 08/11/19 19:32) Review of Systems ROS: No change since H&P Vital Signs and I&O's Vital Signs: Temperature 99.6 F Pulse Rate [Left Brachial] 116 Pulse Rate 72 Respiratory Rate 30 Blood Pressure [Right Arm] 83/66 Blood Pressure [Left Arm] 181/78 Blood Pressure 114/53 O2 Sat by Pulse Oximetry 96 Intake and Output: Intake & Output 10/18/19 10/19/19 10/20/19 10/21/19 23:59 23:59 23:59 23:59 Intake Total 1401 / 1401 551 / 551 Output Total 3925 / 3925 875 / 875 Balance -2524 / -2524 -324 / -324 Physical Exam Oriented: Unable to test Eyes: Normal Throat: Red, Dry and Other (dry blood noted on the tongue and mouth ) Respiratory: Wheezes and Rales Cardiovascular: Tachycardia and Edema (significantly improved ) Auscultation: Bowel Sounds: Decreased Tenderness: Normal Skin: Other (left foot swelling reduced ) Musculoskeletal: Left and Foot Psychiatric: Normal Mood Description: Anxious Affect: Anxious Speech Pattern: Clear Laboratory and Diagnostics Result Diagrams: 10/21/19 03:46 10/21/19 03:46 Labs: Laboratory WBC 17.9 X10^3/uL (3.6-10.0) H D 10/21/19 03:46 RBC 2.60 X10^6/uL (4.7-6.0) L 10/21/19 03:46 Hgb 8.3 g/dL (13.5-18.0) L 10/21/19 03:46 Hct 24.3 % (42.0-54.0) L 10/21/19 03:46 MCV 93.4 fL (80.0-100.0) 10/21/19 03:46 MCH 32.0 pg (27.0-34.0) 10/21/19 03:46 MCHC 34.3 g/dL (33.0-35.0) 10/21/19 03:46 RDW 15.5 % (11.6-16.5) 10/21/19 03:46 Plt Count 213 X10^3/uL (150.0-450.0) 10/21/19 03:46 Plt Count Comment Adequate (ADEQUATE) 10/20/19 06:14 MPV 8.3 fL (7.4-11.0) 10/21/19 03:46 Neut % (Auto) 87.3 % (42.0-75.0) H 10/21/19 03:46 Lymph % (Auto) 2.6 % (21.0-51.0) L 10/21/19 03:46 [place] % (Auto) 9.7 % (0.0-13.0) 10/21/19 03:46 Eos % (Auto) 0.1 % (0.9-2.9) L 10/21/19 03:46 Baso % (Auto) 0.3 % (0.2-1.0) 10/21/19 03:46 Neut # (Auto) 15.6 x10^3/uL (2.2-4.8) H 10/21/19 03:46 Lymph # (Auto) 0.5 X10^3/uL (1.3-2.9) L 10/21/19 03:46 [place] # (Auto) 1.7 x10^3/uL (0.3-0.8) H 10/21/19 03:46 Eos # (Auto) 0.0 x10^3/uL (0.0-0.2) 10/21/19 03:46 Baso # (Auto) 0.1 X10^3/uL (0.0-0.1) 10/21/19 03:46 Absolute Nucleated RBC 0.0 /100WBC 10/21/19 03:46 Plt Morphology Comment Normal (NORMAL) 10/20/19 06:14 RBC Morphology Abnormal (NORMAL) 10/20/19 06:14 Hypochromasia Slight A 10/20/19 06:14 PT 34.0 SECONDS (11.8-14.3) 10/21/19 03:46 INR Target Range - 10/21/19 03:46 INR 3.49 (0.8-1.3) H 10/21/19 03:46 Sodium 134 mmol/L (136-145) L 10/21/19 03:46 Corrected Sodium 135 mmol/L (136-145) L 10/21/19 03:46 Potassium 4.1 mmol/L (3.5-5.1) 10/21/19 03:46 Chloride 94 mmol/L (98-107) L 10/21/19 03:46 Carbon Dioxide 32.5 mmol/L (21-32) H 10/21/19 03:46 BUN 107 mg/dL (7-18) H 10/21/19 03:46 Creatinine 2.47 mg/dL (0.70-1.30) H 10/21/19 03:46 Est GFR (MDRD) Af Amer 34 (>60) L 10/21/19 03:46 Est GFR (MDRD) Non-Af 28 (>60) L 10/21/19 03:46 Glucose 149 mg/dL (65-99) H 10/21/19 03:46 POC Glucose (mg/dL) 144 mg/dL (65-99) H 10/21/19 04:57 Lactic Acid 3.4 mmol/L (0.4-2.0) H 10/21/19 07:09 Calcium 9.0 mg/dL (8.5-10.1) 10/21/19 03:46 Corrected Calcium Cancelled 10/19/19 22:45 Iron 39 ug/dL (50-175) L 10/19/19 22:45 Transferrin 227 mg/dL (202-364) 10/19/19 22:45 Ferritin 214 ng/mL (26-388) 10/19/19 22:45 Total Bilirubin 0.80 mg/dL (0.2-1.0) 10/21/19 07:09 Direct Bilirubin 0.40 mg/dL (0-0.2) H 10/21/19 07:09 Indirect Bilirubin 0.40 mg/dL (0.2-0.8) 10/21/19 07:09 AST 43 Units/L (15-37) H 10/21/19 07:09 ALT 27 Units/L (12-78) 10/21/19 07:09 Alkaline Phosphatase 65 Units/L (46-116) 10/21/19 07:09 Ammonia < 10 umol/L (11-32) L 10/21/19 07:09 Creatine Kinase 149 Units/L (39-308) 10/20/19 03:40 CK-MB (CK-2) 1.5 ng/mL (0-4.0) 10/20/19 03:40 CK/CKMB % Calc 1.0 % (<4) 10/20/19 03:40 Troponin I < 0.02 ng/mL (0-1.5) 10/20/19 03:40 Total Protein 4.5 g/dL (6.4-8.2) L 10/21/19 07:09 Albumin 2.3 g/dL (3.4-5.0) L 10/21/19 07:09 Globulin 2.2 g/dL (2.5-4.5) L 10/21/19 07:09 Albumin/Globulin Ratio 1.0 Ratio (1.1-2.1) L 10/21/19 07:09 Triglycerides 155 mg/dL (0-150) H 10/20/19 03:40 Cholesterol 103 mg/dL (0-200) 10/20/19 03:40 LDL Cholesterol, Calc 39 mg/dL (0-100) 10/20/19 03:40 HDL Cholesterol 33 mg/dL (40-60) L 10/20/19 03:40 Cholesterol/HDL Ratio 3.1 (0.0-5.0) 10/20/19 03:40 Vitamin B12 1573 pg/mL (193-986) H 10/19/19 22:45 Folate > 20.0 ng/mL (>8.6) 10/19/19 22:45 Specimen Type Catherized urine 10/20/19 00:40 Urine Color Yellow (YELLOW) 10/20/19 00:40 Urine Appearance Clear (CLEAR) 10/20/19 00:40 Urine pH 5.0 (5.0 - 8.0) 10/20/19 00:40 Ur Specific [place] 1.010 (1.000-1.030) 10/20/19 00:40 Urine Protein Negative (NEGATIVE) 10/20/19 00:40 Urine Glucose (UA) Negative (NEGATIVE) 10/20/19 00:40 Urine Ketones Negative (NEGATIVE) 10/20/19 00:40 Urine Occult Blood Negative (NEGATIVE) 10/20/19 00:40 Urine Nitrite Negative (NEGATIVE) 10/20/19 00:40 Urine Bilirubin Negative (NEGATIVE) 10/20/19 00:40 Urine Urobilinogen Normal (NORMAL) 10/20/19 00:40 Ur Leukocyte Esterase Negative (NEGATIVE) 10/20/19 00:40 Stool Description Ifob 10/19/19 23:17 Stl Occult Blood (IFOB) Positive (NEGATIVE) A 10/19/19 23:17 Blood Type A POSITIVE 10/19/19 22:45 Antibody Screen Negative 10/19/19 22:45 Crossmatch See Detail 10/19/19 22:45 Plan (1) SOB (shortness of breath): Status: Acute Plan: likely due to pulmonary edema and underlying COPD -will give another dose of Lasix 20 mg IV, stop fluids - start solumedrol (2) GI bleed: Status: Acute Qualifiers: GI bleed type/associated pathology: melena Qualified Code(s): K92.1 - Melena Plan: Hgb: 6.6, iFOB positive , s/p 3 units PRBC's Hgb 8.3 today Surgery consulted - Dr. Riley plan to do the EGD tomorrow Monitor H/H, transfuse if < 8 (3) Acute hyponatremia: Status: Acute Plan: improved, Na: 135 Monitor AM labs (4) Anemia: Status: Acute Qualifiers: Anemia type: unspecified type Qualified Code(s): D64.9 - Anemia, unsp ecified Plan: Hgb 8.3 s/p 3 units PRBCs Stool occult positive Continue Protonix 40 mg BID Hold asa, Plavix and warfarin, monitor H/H Likely EGD tomorrow to rule out active bleeding due to ulcer (5) CHF (congestive heart failure): Status: Acute Qualifiers: Heart failure type: systolic Heart failure chronicity: acute on chronic Qualified Code(s): I50.23 - Acute on chronic systolic (congestive) heart failure Plan: CXR: cardiomegaly, moderate-severe LE edema Will give one dose of Lasix today, monitor BP Trop x 2 negative EF: 53% (6) Cirrhosis: Status: Acute Qualifiers: Hepatic cirrhosis type: unspecified hepatic cirrhosis Ascites presence: unspecified Qualified Code(s): K74.60 - Unspecified cirrhosis of liver (7) Cellulitis and abscess of foot: Status: Acute Plan: Left foot XR: concerning for cellulitis Blood cultures pending Continue Rocephin (8) MICH (acute kidney injury): Status: Acute Plan: Cr: 4.95 on admission, trending down 2.47 CTAP shows mild renal atrophy Monitor AM labs (9) Fall: Status: Acute Qualifiers: Encounter type: initial encounter Qualified Code(s): W19.XXXA - Unspe cified fall, initial encounter Plan: no acute fracture, dizziness due to anemia and hyponatremia Fall precautions, PT/OT when stable (10) Mechanical heart valve present: Status: Acute Plan: on coumadin but on hold due to anemia and iFOB positive INR trending up 3.49, will give Vit K 2.5 mg once, monitor INR in the AM (11) Hx pulmonary embolism: Status: Acute Plan: has IVC filters and on coumadin which has been held due to bleeding
[2019-10-21] MEDS: NORCO 10/325 TAB PO PRN ×2 (10:05→16:10)
[2019-10-21 10:26] LABS: BILIRUBIN,URINE NEGATIVE (NEGATIVE); BLOOD/HEMOGLOBIN,URINE 5+ (NEGATIVE); GLUCOSE, URINE NEGATIVE (NEGATIVE); KETONES,URINE NEGATIVE (NEGATIVE); LEUKOCYTE ESTERASE ,URINE 2+ (NEGATIVE); NITRITES,URINE NEGATIVE (NEGATIVE); PROTEIN,URINE 2+ (NEGATIVE); UROBILINOGEN,URINE NORMAL (NORMAL)
[2019-10-21 10:39] LABS: APPEARANCE,URINE CLEAR (CLEAR); COLOR,URINE BROWN (YELLOW)
[2019-10-21 10:40] LABS: AMORPHOUS SEDIMENT,UR TRACE /HPF (NEGATIVE); BACTERIA,URINE TRACE /HPF (NEGATIVE); SQUAMOUS EPITHELIAL CELL,UR RARE /HPF (NEGATIVE)
--- NOTE | 2019-10-21 11:36 | DR.PROGNOT ---
Hospital Progress Notes - Progress Note for Day of: Progress Note Date: 10/21/19 - Chief Complaint Chief Complaint: Pt is restless with moderate SOB and anxiety . c/o mild abdominal pain , no nausea or vomiting . slight improving renal function , still having coagulopathy with hematuria and gum bleeding - Past Medical Family Social History Past Med/Fam/Surg Hx: No changes since H&P Allergies: Allergies minocycline Allergy (Verified 08/11/19 19:32) rifampin Allergy (Verified 08/11/19 19:32) - Review Of Systems ROS: No change since H&P - Vital Signs Vital Signs: Temperature 99.2 F Pulse Rate [Left Brachial] 117 Pulse Rate 72 Respiratory Rate 33 Blood Pressure [Right Arm] 112/78 Blood Pressure [Left Arm] 181/78 Blood Pressure 114/53 O2 Sat by Pulse Oximetry 98 - Physical Exam Oriented: Unable to test Eyes: Normal Throat: Red, Dry, Other (dry blood noted on the tongue and mouth) Respiratory: Wheezes, Rales Cardiovascular: Tachycardia, Edema (significantly improved) GI:Auscultation: Decreased GI:Palpation: Normal GI: Tenderness: Normal Skin: Other (left foot swelling reduced) Musculoskeletal: Left, Foot Psychiatric: Normal Mood Description: Anxious Affect: Anxious Speech Pattern: Clear - Laboratory and Diagnostics Result Diagrams: 10/21/19 03:46 10/21/19 03:46 Labs: Laboratory WBC 17.9 X10^3/uL (3.6-10.0) H D 10/21/19 03:46 RBC 2.60 X10^6/uL (4.7-6.0) L 10/21/19 03:46 Hgb 8.3 g/dL (13.5-18.0) L 10/21/19 03:46 Hct 24.3 % (42.0-54.0) L 10/21/19 03:46 MCV 93.4 fL (80.0-100.0) 10/21/19 03:46 MCH 32.0 pg (27.0-34.0) 10/21/19 03:46 MCHC 34.3 g/dL (33.0-35.0) 10/21/19 03:46 RDW 15.5 % (11.6-16.5) 10/21/19 03:46 Plt Count 213 X10^3/uL (150.0-450.0) 10/21/19 03:46 Plt Count Comment Adequate (ADEQUATE) 10/20/19 06:14 MPV 8.3 fL (7.4-11.0) 10/21/19 03:46 Neut % (Auto) 87.3 % (42.0-75.0) H 10/21/19 03:46 Lymph % (Auto) 2.6 % (21.0-51.0) L 10/21/19 03:46 [place] % (Auto) 9.7 % (0.0-13.0) 10/21/19 03:46 Eos % (Auto) 0.1 % (0.9-2.9) L 10/21/19 03:46 Baso % (Auto) 0.3 % (0.2-1.0) 10/21/19 03:46 Neut # (Auto) 15.6 x10^3/uL (2.2-4.8) H 10/21/19 03:46 Lymph # (Auto) 0.5 X10^3/uL (1.3-2.9) L 10/21/19 03:46 [place] # (Auto) 1.7 x10^3/uL (0.3-0.8) H 10/21/19 03:46 Eos # (Auto) 0.0 x10^3/uL (0.0-0.2) 10/21/19 03:46 Baso # (Auto) 0.1 X10^3/uL (0.0-0.1) 10/21/19 03:46 Absolute Nucleated RBC 0.0 /100WBC 10/21/19 03:46 Plt Morphology Comment Normal (NORMAL) 10/20/19 06:14 RBC Morphology Abnormal (NORMAL) 10/20/19 06:14 Hypochromasia Slight A 10/20/19 06:14 PT 34.0 SECONDS (11.8-14.3) 10/21/19 03:46 INR Target Range - 10/21/19 03:46 INR 3.49 (0.8-1.3) H 10/21/19 03:46 Sodium 134 mmol/L (136-145) L 10/21/19 03:46 Corrected Sodium 135 mmol/L (136-145) L 10/21/19 03:46 Potassium 4.1 mmol/L (3.5-5.1) 10/21/19 03:46 Chloride 94 mmol/L (98-107) L 10/21/19 03:46 Carbon Dioxide 32.5 mmol/L (21-32) H 10/21/19 03:46 BUN 107 mg/dL (7-18) H 10/21/19 03:46 Creatinine 2.47 mg/dL (0.70-1.30) H 10/21/19 03:46 Est GFR (MDRD) Af Amer 34 (>60) L 10/21/19 03:46 Est GFR (MDRD) Non-Af 28 (>60) L 10/21/19 03:46 Glucose 149 mg/dL (65-99) H 10/21/19 03:46 POC Glucose (mg/dL) 144 mg/dL (65-99) H 10/21/19 04:57 Lactic Acid 3.4 mmol/L (0.4-2.0) H 10/21/19 07:09 Calcium 9.0 mg/dL (8.5-10.1) 10/21/19 03:46 Corrected Calcium Cancelled 10/19/19 22:45 Iron 39 ug/dL (50-175) L 10/19/19 22:45 Transferrin 227 mg/dL (202-364) 10/19/19 22:45 Ferritin 214 ng/mL (26-388) 10/19/19 22:45 Total Bilirubin 0.80 mg/dL (0.2-1.0) 10/21/19 07:09 Direct Bilirubin 0.40 mg/dL (0-0.2) H 10/21/19 07:09 Indirect Bilirubin 0.40 mg/dL (0.2-0.8) 10/21/19 07:09 AST 43 Units/L (15-37) H 10/21/19 07:09 ALT 27 Units/L (12-78) 10/21/19 07:09 Alkaline Phosphatase 65 Units/L (46-116) 10/21/19 07:09 Ammonia < 10 umol/L (11-32) L 10/21/19 07:09 Creatine Kinase 149 Units/L (39-308) 10/20/19 03:40 CK-MB (CK-2) 1.5 ng/mL (0-4.0) 10/20/19 03:40 CK/CKMB % Calc 1.0 % (<4) 10/20/19 03:40 Troponin I < 0.02 ng/mL (0-1.5) 10/20/19 03:40 Total Protein 4.5 g/dL (6.4-8.2) L 10/21/19 07:09 Albumin 2.3 g/dL (3.4-5.0) L 10/21/19 07:09 Globulin 2.2 g/dL (2.5-4.5) L 10/21/19 07:09 Albumin/Globulin Ratio 1.0 Ratio (1.1-2.1) L 10/21/19 07:09 Triglycerides 155 mg/dL (0-150) H 10/20/19 03:40 Cholesterol 103 mg/dL (0-200) 10/20/19 03:40 LDL Cholesterol, Calc 39 mg/dL (0-100) 10/20/19 03:40 HDL Cholesterol 33 mg/dL (40-60) L 10/20/19 03:40 Cholesterol/HDL Ratio 3.1 (0.0-5.0) 10/20/19 03:40 Vitamin B12 1573 pg/mL (193-986) H 10/19/19 22:45 Folate > 20.0 ng/mL (>8.6) 10/19/19 22:45 Specimen Type Cancelled 10/21/19 10:10 Specimen Type Clean catch urine 10/21/19 10:10 Urine Color Brown (YELLOW) 10/21/19 10:10 Urine Color Cancelled 10/21/19 10:10 Urine Appearance Cancelled 10/21/19 10:10 Urine Appearance Clear (CLEAR) 10/21/19 10:10 Urine pH 5.0 (5.0 - 8.0) 10/21/19 10:10 Ur Specific [place] 1.010 (1.000-1.030) 10/21/19 10:10 Urine Protein 2+ (NEGATIVE) 10/21/19 10:10 Urine Glucose (UA) Negative (NEGATIVE) 10/21/19 10:10 Urine Ketones Negative (NEGATIVE) 10/21/19 10:10 Urine Occult Blood 5+ (NEGATIVE) 10/21/19 10:10 Urine Nitrite Negative (NEGATIVE) 10/21/19 10:10 Urine Bilirubin Negative (NEGATIVE) 10/21/19 10:10 Urine Urobilinogen Normal (NORMAL) 10/21/19 10:10 Ur Leukocyte Esterase 2+ (NEGATIVE) 10/21/19 10:10 Urine RBC 10-20 /HPF (0-3) A 10/21/19 10:10 Urine RBC Cancelled 10/21/19 10:10 Urine WBC Cancelled 10/21/19 10:10 Urine WBC Tntc /HPF (0-5) A 10/21/19 10:10 Ur Squamous Epith Cells Cancelled 10/21/19 10:10 Ur Squamous Epith Cells Rare /HPF (NEGATIVE) 10/21/19 10:10 Ur Transition Epith Cell Cancelled 10/21/19 10:10 Ur Renal Epithelial Cell Cancelled 10/21/19 10:10 Calcium Oxalate Crystal Cancelled 10/21/19 10:10 Cystine Crystals Cancelled 10/21/19 10:10 Uric Acid Crystals Cancelled 10/21/19 10:10 Triple Phos Crystals Cancelled 10/21/19 10:10 Tyrosine Crystals Cancelled 10/21/19 10:10 Other Crystals Cancelled 10/21/19 10:10 Amorphous Sediment Cancelled 10/21/19 10:10 Amorphous Sediment Trace /HPF (NEGATIVE) 10/21/19 10:10 Urine Bacteria Cancelled 10/21/19 10:10 Urine Bacteria Trace /HPF (NEGATIVE) 10/21/19 10:10 Hyaline Casts Cancelled 10/21/19 10:10 Granular Casts Cancelled 10/21/19 10:10 Fine Granular Casts Cancelled 10/21/19 10:10 Coarse Granular Casts Cancelled 10/21/19 10:10 RBC Casts Cancelled 10/21/19 10:10 Other Casts Cancelled 10/21/19 10:10 Urine Mucus Cancelled 10/21/19 10:10 Urine Trichomonas Cancelled 10/21/19 10:10 Urine Yeast Cancelled 10/21/19 10:10 Urine Sperm Cancelled 10/21/19 10:10 Ur Culture Indicated? Cancelled 10/21/19 10:10 Ur Culture Indicated? No/not indicated 10/21/19 10:10 Stool Description Ifob 10/19/19 23:17 Stl Occult Blood (IFOB) Positive (NEGATIVE) A 10/19/19 23:17 Blood Type A POSITIVE 10/19/19 22:45 Antibody Screen Negative 10/19/19 22:45 Crossmatch See Detail 10/19/19 22:45 - Assessment and Plan 1: shortness of breath . anemia with coumadin induced coagulopathy . GI bleeding . MICH .with chronic kidney disease . obesity . for EGD when medica lly stable . - Problem Patient Problems: Patient Problems MICH (acute kidney injury) (Acute) N17.9 Hx pulmonary embolism (Acute) Z86.711 Fall (Acute) W19.XXXA GI bleed (Acute) K92.2 Cellulitis and abscess of foot (Acute) L03.119, L02.619 Mechanical heart valve present (Acute) Z95.2 Cirrhosis (Acute) K74.60 Acute hyponatremia (Acute) E87.1 Chronic kidney disease (CKD) stage G5/A1, glomerular filtration rate (GFR) less than or equal to 15 mL/min/1.73 square meter and albuminuria creatinine ratio less than 30 mg/g (Acute) N18.5 Edema due to hypoalbuminemia (Acute) R60.9, E88.09 Anemia (Acute) D64.9 Blood transfusion during current hospitalization (Acute) Prolonged Q-T interval on ECG (Acute) R94.31
[2019-10-21] MEDS ORDERED: D5 NS 1000 ML 1,000 ML IV SCH (14:00)
--- NOTE | 2019-10-21 14:15 | CT ---
HISTORYSlurred speechSTUDYCT of the brain without contrastCOMPARISONNo recent comparisonsNoncontrast CT of the head is performed in the axial plane and is reconstructed with multiplanar imaging techniques.FINDINGSThere is no evidence of an acute intracranial hemorrhage or extra-axial hematoma. There is no mass effect, midline shift or evidence of cerebral edema. The ventricular size is normal. The initial CT demonstrates no well-defined, cortically based, large artery territorial infarct. Atherosclerotic calcifications are present within the cavernous ICA segments and vertebral arteries. Mild periventricular and patchy subcortical white matter hypoattenuation observed, most likely related to chronic microangiopathic ischemic changes. The included paranasal sinuses and the mastoid air cells are predominantly clear.IMPRESSIONNo acute intracranial abnormalities. Specifically, no intracranial hemorrhage or acute stage, large artery territorial infarct is identified on the initial CT of the head.If there is definite, focal, acute neurologic deficit, follow up imaging is recommended to evaluate for evolutionary changes. MRI with DWI provides the highest level of initial sensitivity for the detection of acute ischemic infarcts.Age appropriate cortical volume loss and chronic microangiopathic ischemic white matter changes, as described above.Electronically signed by: ARLYN HANSEN (Oct 21, 2019 14:14:11)
--- NOTE | 2019-10-21 14:56 | W.DIS.FURT ---
Summary of Discharge Discharge Summary of Date Date of Exam: 10/21/19 Admission Date Date of Admission: 10/19/19 Admission Diagnosis Hospital Course: Mr. Marroquin is a 68y/o male with a PMH of CABG, Cirrhosis, CHF, hx of PE s/p IVC filter, mechanical aortic valve on warfarin presented with increased lower ext edema, weakness, fatigue and AMS. Patient was admitted last month for CHF exacerbation. Family reports patient has not been taking care of himself at home. He has gained a lot of weight in the last week. He's also been having falls. He was very weak and confused yesterday so he was brought to the ED. Patient sees cardiology Dr. Jones in [place]. Patient denies any active bleeding or melena. In the Ed, patient's hemoglobin was noted to be 6.6, INR 3.24, troponin x 2 negative. CXR showed cardiomegaly. Patient received IV lasix and blood transfusion was started. Patient's Cr on admission was 4.54. Dr. Riley with surgery was consulted for EGD due to iFOB being positive.He had good urine output with the lasix. He required 3 units of PRBCs to keep hgb above 8. The next day, patient was having gum bleeding and hematuria. Coumadin was held since admission. His INR remained above 3, he received oral vitamin K and FFP. Initial ly patient's home medications including methadone, gabapentin and opioids were held due to patient being drowsy and altered. These were all resumed the next day but patient continued to be agitated and restless. After discussion with family and Dr. Riley, it was decided to transfer patient to a higher level of care as patient was not yet stable to have EGD with ongoing bleeding. Patient was transferred to [facility] in [facility] for further care. Vital Signs: Vital Signs (72 hours) 10/19/19 19:51 10/19/19 20:01 10/19/19 20:16 Temperature 97.4 F L Pulse Rate 82 58 L 61 Pulse Rate [Left Brachial] Respiratory Rate 24 27 H 22 Blood Pressure 116/46 85/42 113/53 Blood Pressure [Right Arm] O2 Sat by Pulse Oximetry 90 L 91 L 93 L 10/19/19 20:31 10/19/19 20:58 10/19/19 21:01 Temperature Pulse Rate 63 68 65 Pulse Rate [Left Brachial] Respiratory Rate 28 H 18 26 H Blood Pressure 78/32 88/64 82/45 Blood Pressure [Right Arm] O2 Sat by Pulse Oximetry 94 L 92 L 10/19/19 21:09 10/19/19 21:10 10/19/19 21:31 Temperature Pulse Rate 64 62 65 Pulse Rate [Left Brachial] Respiratory Rate 25 H 26 H 26 H Blood Pressure 111/68 100/52 Blood Pressure [Right Arm] O2 Sat by Pulse Oximetry 96 97 10/19/19 22:01 10/19/19 22:08 10/19/19 23:27 Temperature Pulse Rate 66 68 72 Pulse Rate [Left Brachial] Respiratory Rate 19 33 H 21 Blood Pressure 114/53 Blood Pressure [Right Arm] O2 Sat by Pulse Oximetry 92 L 97 10/19/19 23:35 10/19/19 23:36 10/20/19 00:00 Temperature 98.2 F Pulse Rate Pulse Rate [Left Brachial] 74 68 71 Respiratory Rate 21 30 H Blood Pressure Blood Pressure [Right Arm] 109/51 112/59 O2 Sat by Pulse Oximetry 97 97 10/20/19 01:00 10/20/19 02:00 10/20/19 03:00 Temperature Pulse Rate Pulse Rate [Left Brachial] 72 75 77 Respiratory Rate 26 H 24 23 Blood Pressure Blood Pressure [Right Arm] 110/49 112/55 125/82 O2 Sat by Pulse Oximetry 97 98 99 10/20/19 04:00 10/20/19 05:00 10/20/19 06:00 Temperature 98.3 F Pulse Rate Pulse Rate [Left Brachial] 77 80 81 Respiratory Rate 21 23 23 Blood Pressure Blood Pressure [Right Arm] 113/56 113/51 113/56 O2 Sat by Pulse Oximetry 98 96 96 10/20/19 07:00 10/20/19 08:00 10/20/19 09:00 Temperature 98.1 F Pulse Rate Pulse Rate [Left Brachial] 89 87 84 Respiratory Rate 30 H 23 20 Blood Pressure Blood Pressure [Right Arm] 127/57 108/51 110/56 O2 Sat by Pulse Oximetry 96 96 96 10/20/19 10:00 10/20/19 11:00 10/20/19 12:00 Temperature 98.4 F Pulse Rate Pulse Rate [Left Brachial] 87 92 H 92 H Respiratory Rate 32 H 30 H 20 Blood Pressure Blood Pressure [Right Arm] 112/55 113/53 140/51 O2 Sat by Pulse Oximetry 96 97 97 10/20/19 13:00 10/20/19 14:00 10/20/19 15:00 Temperature Pulse Rate Pulse Rate [Left Brachial] 96 H 92 H 114 H Respiratory Rate 23 20 24 Blood Pressure Blood Pressure [Right Arm] 109/50 117/57 129/78 O2 Sat by Pulse Oximetry 96 97 97 10/20/19 16:00 10/20/19 17:00 10/20/19 17:06 Temperature 100.1 F H Pulse Rate Pulse Rate [Left Brachial] 103 H Respiratory Rate 20 20 26 H Blood Pressure Blood Pressure [Right Arm] 120/56 O2 Sat by Pulse Oximetry 97 93 L 10/20/19 18:00 10/20/19 18:06 10/20/19 19:00 Temperature 99.3 F Pulse Rate Pulse Rate [Left Brachial] 112 H 110 H Respiratory Rate 20 22 21 Blood Pressure Blood Pressure [Right Arm] 96/45 95/44 O2 Sat by Pulse Oximetry 93 L 94 L 10/20/19 20:00 10/20/19 21:00 10/20/19 22:00 Temperature 100 F H Pulse Rate Pulse Rate [Left Brachial] 121 H 124 H 123 H Respiratory Rate 25 H 23 24 Blood Pressure Blood Pressure [Right Arm] 104/61 102/50 103/69 O2 Sat by Pulse Oximetry 98 98 95 10/20/19 23:00 10/21/19 00:00 10/21/19 01:00 Temperature 99.3 F 99.5 F 98.9 F Pulse Rate Pulse Rate [Left Brachial] 130 H 129 H 133 H Respiratory Rate 25 H 25 H 29 H Blood Pressure Blood Pressure [Right Arm] 97/69 112/54 113/53 O2 Sat by Pulse Oximetry 99 97 100 10/21/19 02:00 10/21/19 03:00 10/21/19 04:00 Temperature 99.7 F H 99.6 F Pulse Rate Pulse Rate [Left Brachial] 128 H 130 H 126 H Respiratory Rate 24 25 H 30 H Blood Pressure Blood Pressure [Right Arm] 108/53 111/54 110/55 O2 Sat by Pulse Oximetry 98 98 99 10/21/19 05:00 10/21/19 06:00 10/21/19 07:00 Temperature Pulse Rate Pulse Rate [Left Brachial] 127 H 116 H 117 H Respiratory Rate 33 H 25 H 30 H Blood Pressure Blood Pressure [Right Arm] 89/51 83/66 101/54 O2 Sat by Pulse Oximetry 99 96 97 10/21/19 08:00 10/21/19 09:00 10/21/19 09:19 Temperature 99.2 F Pulse Rate Pulse Rate [Left Brachial] 121 H 127 H Respiratory Rate 36 H 36 H 30 H Blood Pressure Blood Pressure [Right Arm] 121/59 117/58 O2 Sat by Pulse Oximetry 98 98 10/21/19 10:00 10/21/19 10:05 10/21/19 10:19 Temperature Pulse Rate Pulse Rate [Left Brachial] 117 H Respiratory Rate 33 H 32 H 30 H Blood Pressure Blood Pressure [Right Arm] 112/78 O2 Sat by Pulse Oximetry 98 10/21/19 11:05 Temperature Pulse Rate Pulse Rate [Left Brachial] Respiratory Rate 34 H Blood Pressure Blood Pressure [Right Arm] O2 Sat by Pulse Oximetry Labs: Laboratory Last Values WBC 17.9 X10^3/uL (3.6-10.0) H D 10/21/19 03:46 RBC 2.60 X10^6/uL (4.7-6.0) L 10/21/19 03:46 Hgb 8.3 g/dL (13.5-18.0) L 10/21/19 03:46 Hct 24.3 % (42.0-54.0) L 10/21/19 03:46 MCV 93.4 fL (80.0-100.0) 10/21/19 03:46 MCH 32.0 pg (27.0-34.0) 10/21/19 03:46 MCHC 34.3 g/dL (33.0-35.0) 10/21/19 03:46 RDW 15.5 % (11.6-16.5) 10/21/19 03:46 Plt Count 213 X10^3/uL (150.0-450.0) 10/21/19 03:46 Plt Count Comment Adequate (ADEQUATE) 10/20/19 06:14 MPV 8.3 fL (7.4-11.0) 10/21/19 03:46 Neut % (Auto) 87.3 % (42.0-75.0) H 10/21/19 03:46 Lymph % (Auto) 2.6 % (21.0-51.0) L 10/21/19 03:46 [place] % (Auto) 9.7 % (0.0-13.0) 10/21/19 03:46 Eos % (Auto) 0.1 % (0.9-2.9) L 10/21/19 03:46 Baso % (Auto) 0.3 % (0.2-1.0) 10/21/19 03:46 Neut # (Auto) 15.6 x10^3/uL (2.2-4.8) H 10/21/19 03:46 Lymph # (Auto) 0.5 X10^3/uL (1.3-2.9) L 10/21/19 03:46 [place] # (Auto) 1.7 x10^3/uL (0.3-0.8) H 10/21/19 03:46 Eos # (Auto) 0.0 x10^3/uL (0.0-0.2) 10/21/19 03:46 Baso # (Auto) 0.1 X10^3/uL (0.0-0.1) 10/21/19 03:46 Absolute Nucleated RBC 0.0 /100WBC 10/21/19 03:46 Plt Morphology Comment Normal (NORMAL) 10/20/19 06:14 RBC Morphology Abnormal (NORMAL) 10/20/19 06:14 Hypochromasia Slight A 10/20/19 06:14 PT 34.0 SECONDS (11.8-14.3) 10/21/19 03:46 INR Target Range - 10/21/19 03:46 INR 3.49 (0.8-1.3) H 10/21/19 03:46 Sodium 134 mmol/L (136-145) L 10/21/19 03:46 Corrected Sodium 135 mmol/L (136-145) L 10/21/19 03:46 Potassium 4.1 mmol/L (3.5-5.1) 10/21/19 03:46 Chloride 94 mmol/L (98-107) L 10/21/19 03:46 Carbon Dioxide 32.5 mmol/L (21-32) H 10/21/19 03:46 BUN 107 mg/dL (7-18) H 10/21/19 03:46 Creatinine 2.47 mg/dL (0.70-1.30) H 10/21/19 03:46 Est GFR (MDRD) Af Amer 34 (>60) L 10/21/19 03:46 Est GFR (MDRD) Non-Af 28 (>60) L 10/21/19 03:46 Glucose 149 mg/dL (65-99) H 10/21/19 03:46 POC Glucose (mg/dL) 169 mg/dL (65-99) H 10/21/19 11:39 Lactic Acid 3.4 mmol/L (0.4-2.0) H 10/21/19 07:09 Calcium 9.0 mg/dL (8.5-10.1) 10/21/19 03:46 Corrected Calcium Cancelled 10/19/19 22:45 Iron 39 ug/dL (50-175) L 10/19/19 22:45 Transferrin 227 mg/dL (202-364) 10/19/19 22:45 Ferritin 214 ng/mL (26-388) 10/19/19 22:45 Total Bilirubin 0.80 mg/dL (0.2-1.0) 10/21/19 07:09 Direct Bilirubin 0.40 mg/dL (0-0.2) H 10/21/19 07:09 Indirect Bilirubin 0.40 mg/dL (0.2-0.8) 10/21/19 07:09 AST 43 Units/L (15-37) H 10/21/19 07:09 ALT 27 Units/L (12-78) 10/21/19 07:09 Alkaline Phosphatase 65 Units/L (46-116) 10/21/19 07:09 Ammonia < 10 umol/L (11-32) L 10/21/19 07:09 Creatine Kinase 149 Units/L (39-308) 10/20/19 03:40 CK-MB (CK-2) 1.5 ng/mL (0-4.0) 10/20/19 03:40 CK/CKMB % Calc 1.0 % (<4) 10/20/19 03:40 Troponin I < 0.02 ng/mL (0-1.5) 10/20/19 03:40 Total Protein 4.5 g/dL (6.4-8.2) L 10/21/19 07:09 Albumin 2.3 g/dL (3.4-5.0) L 10/21/19 07:09 Globulin 2.2 g/dL (2.5-4.5) L 10/21/19 07:09 Albumin/Globulin Ratio 1.0 Ratio (1.1-2.1) L 10/21/19 07:09 Triglycerides 155 mg/dL (0-150) H 10/20/19 03:40 Cholesterol 103 mg/dL (0-200) 10/20/19 03:40 LDL Cholesterol, Calc 39 mg/dL (0-100) 10/20/19 03:40 HDL Cholesterol 33 mg/dL (40-60) L 10/20/19 03:40 Cholesterol/HDL Ratio 3.1 (0.0-5.0) 10/20/19 03:40 Vitamin B12 1573 pg/mL (193-986) H 10/19/19 22:45 Folate > 20.0 ng/mL (>8.6) 10/19/19 22:45 Specimen Type Cancelled 10/21/19 10:10 Specimen Type Clean catch urine 10/21/19 10:10 Urine Color Brown (YELLOW) 10/21/19 10:10 Urine Color Cancelled 10/21/19 10:10 Urine Appearance Cancelled 10/21/19 10:10 Urine Appearance Clear (CLEAR) 10/21/19 10:10 Urine pH 5.0 (5.0 - 8.0) 10/21/19 10:10 Ur Specific [place] 1.010 (1.000-1.030) 10/21/19 10:10 Urine Protein 2+ (NEGATIVE) 10/21/19 10:10 Urine Glucose (UA) Negative (NEGATIVE) 10/21/19 10:10 Urine Ketones Negative (NEGATIVE) 10/21/19 10:10 Urine Occult Blood 5+ (NEGATIVE) 10/21/19 10:10 Urine Nitrite Negative (NEGATIVE) 10/21/19 10:10 Urine Bilirubin Negative (NEGATIVE) 10/21/19 10:10 Urine Urobilinogen Normal (NORMAL) 10/21/19 10:10 Ur Leukocyte Esterase 2+ (NEGATIVE) 10/21/19 10:10 Urine RBC 10-20 /HPF (0-3) A 10/21/19 10:10 Urine RBC Cancelled 10/21/19 10:10 Urine WBC Cancelled 10/21/19 10:10 Urine WBC Tntc /HPF (0-5) A 10/21/19 10:10 Ur Squamous Epith Cells Cancelled 10/21/19 10:10 Ur Squamous Epith Cells Rare /HPF (NEGATIVE) 10/21/19 10:10 Ur Transition Epith Cell Cancelled 10/21/19 10:10 Ur Renal Epithelial Cell Cancelled 10/21/19 10:10 Calcium Oxalate Crystal Cancelled 10/21/19 10:10 Cystine Crystals Cancelled 10/21/19 10:10 Uric Acid Crystals Cancelled 10/21/19 10:10 Triple Phos Crystals Cancelled 10/21/19 10:10 Tyrosine Crystals Cancelled 10/21/19 10:10 Other Crystals Cancelled 10/21/19 10:10 Amorphous Sediment Cancelled 10/21/19 10:10 Amorphous Sediment Trace /HPF (NEGATIVE) 10/21/19 10:10 Urine Bacteria Cancelled 10/21/19 10:10 Urine Bacteria Trace /HPF (NEGATIVE) 10/21/19 10:10 Hyaline Casts Cancelled 10/21/19 10:10 Granular Casts Cancelled 10/21/19 10:10 Fine Granular Casts Cancelled 10/21/19 10:10 Coarse Granular Casts Cancelled 10/21/19 10:10 RBC Casts Cancelled 10/21/19 10:10 Other Casts Cancelled 10/21/19 10:10 Urine Mucus Cancelled 10/21/19 10:10 Urine Trichomonas Cancelled 10/21/19 10:10 Urine Yeast Cancelled 10/21/19 10:10 Urine Sperm Cancelled 10/21/19 10:10 Ur Culture Indicated? Cancelled 10/21/19 10:10 Ur Culture Indicated? No/not indicated 10/21/19 10:10 Stool Description Ifob 10/19/19 23:17 Stl Occult Blood (IFOB) Positive (NEGATIVE) A 10/19/19 23:17 Blood Type A POSITIVE 10/19/19 22:45 Antibody Screen Negative 10/19/19 22:45 Crossmatch See Detail 10/19/19 22:45 Reason For Visit: ANEMIA, CELLULITIS LEFT FOOT Discharge Date Discharge Date: 10/21/19 Discharge Diagnosis All Active Problems (Updated 10/20/19 @ 11:06 by Rand Harrison) MICH (acute kidney injury) (Acute) Hx pulmonary embolism (Acute) Fall (Acute) GI bleed (Acute) Cellulitis and abscess of foot (Acute) Mechanical heart valve present (Acute) Cirrhosis (Acute) Arthritis (Acute) Knee pain, right (Acute) Diarrhea (Acute) Acute dehydration (Acute) Abdominal pain (Acute) SOB (shortness of breath) (Acute) Hypertension (Acute) CHF (congestive heart failure) (Acute) Abnormal weight gain (Acute) Diabetes (Acute) Acute hyponatremia (Acute) Chronic kidney disease (CKD) stage G5/A1, glomerular filtration rate (GFR) less than or equal to 15 mL/min/1.73 square meter and albuminuria creatinine ratio less than 30 mg/g (Acute) Edema due to hypoalbuminemia (Acute) Anemia (Acute) Blood transfusion during current hospitalization (Acute) Prolonged Q-T interval on ECG (Acute) Plan of Treatment: Continue with present treatment and follow up plan. Pt is to keep follow up appointment as instructed and take medications as ordered. Discharge Medications Discharge Medications: minocycline Allergy (Verified 08/11/19 19:32) rifampin Allergy (Verified 08/11/19 19:32) CONTINUE taking the following medications aspirin [Aspir-81] 81 mg PO DAILY 10/19/19 [History] atorvastatin 40 mg PO QHS 10/19/19 [History] bumetanide 1 mg PO BID 10/19/19 [History] calcium [id number]-Zn-copy cutter-vladimir 1 tab PO BID 10/19/19 [History] clonazepam 1 mg PO QHS PRN 10/19/19 [History] clopidogrel [Plavix] 75 mg PO DAILY 10/19/19 [History] ferrous sulfate 324 mg PO BID 10/19/19 [History] fluticasone propionate [Flonase Allergy Relief] 1 spray INTRANASAL Q12H PRN 10/19/19 [History] gabapentin 400 mg PO BID 10/19/19 [History] glimepiride [Amaryl] 4 mg PO QAM PRN 10/19/19 [History] hydrocodone-acetaminophen [[place]] 1 tab PO Q4-6H PRN 10/19/19 [History] hydroxychloroquine [Plaquenil] 200 mg PO BID 10/19/19 [History] insulin glargine U-300 conc [Toujeo SoloStar U-300 Insulin] 6 unit SUBCUT ONCE 10/19/19 [History] methadone 5 mg PO BID 10/19/19 [History] metoprolol tartrate 25 mg PO DAILY 10/19/19 [History] multivitamin [Multiple Vitamins] 1 tab PO QAM 10/19/19 [History] pantoprazole [Protonix] 40 mg PO BID 10/19/19 [History] potassium chloride 20 meq PO BID 10/19/19 [History] prednisolone 5 mg PO TID 10/19/19 [History] sarilumab [Kevzara] 150 mg SUBCUT Q2W 10/19/19 [History] spironolactone [Aldactone] 25 mg PO DAILY 10/19/19 [History] tamsulosin [Flomax] 0.4 mg PO QHS 10/19/19 [History] valsartan [Diovan] 80 mg PO DAILY 10/19/19 [History] vitamin D3-vitamin K2 1 tab PO BID 10/19/19 [History] warfarin [Coumadin] 5 mg PO DAILY 10/19/19 [History] warfarin [Coumadin] 7.5 mg PO DAILY 10/19/19 [History] Discharge Disposition Discharge Disposition: Transfer to [facility] [place]
[2019-10-21 15:30] LABS: HEMATOCRIT 21.9 % (42.0-54.0)
[2019-10-21] MEDS ORDERED: NS 250 ML IV 250 ML IV SCH (15:35)
[2019-10-21 15:36] LABS: HEMOGLOBIN 7.5 g/dL (13.5-18.0)
[2019-10-21] MEDS ORDERED: NS 250 ML IV 250 ML IV ONE (15:37)
[2019-10-21 17:20] VITALS: BP 117/54
[2019-10-21] MEDS ORDERED: KLONOPIN TAB 1 MG PO SCH (21:00)
== END 2019-10-21 16:45 | disposition short-term general hospital (02) | DRG 377 ==
LOC: ER 19:45 → ICU 22:42
PROVIDERS: ADMIT Internal Medicine; ATTEND Internal Medicine
DX: N17.9 Acute kidney failure, unspecified; R41.82 Altered mental status, unspecified; K92.2 Gastrointestinal hemorrhage, unspecified; Z91.81 History of falling; N18.9 Chronic kidney disease, unspecified; D68.9 Coagulation defect, unspecified; D64.9 Anemia, unspecified; K74.60 Unspecified cirrhosis of liver; E88.09 Other disorders of plasma-protein metabolism, not elsewhere classified; L03.116 Cellulitis of left lower limb; I13.0 Hypertensive heart and chronic kidney disease with heart failure and stage 1 through stage 4 chronic kidney disease, or unspecified chronic kidney disease; R10.9 Unspecified abdominal pain; R94.31 Abnormal electrocardiogram [ECG] [EKG]; I50.23 Acute on chronic systolic (congestive) heart failure; R47.81 Slurred speech; E11.22 Type 2 diabetes mellitus with diabetic chronic kidney disease; R19.7 Diarrhea, unspecified; E66.01 Morbid (severe) obesity due to excess calories; E87.1 Hypo-osmolality and hyponatremia
CPT/HCPCS: 36415; 36430; 70450; 71010; 71020; 71045; 71046; 73630; 74176; 80048; 80053; 80061; 80076; 81001; 81003; 82140; 82270; 82550; 82553; 82607; 82728; 82746; 83540; 83605; 84466; 84484; 85014; 85018; 85025; 85610; 86850; 86900; 86901; 86922; 87040; 87086; 93005; 96365; 96374; 97163; 97166; 99285; A4216; A4222; C9113; J0696; J1940; J2930; J3490; J7030; J7040; J7042; J7050; P9016; P9017; S0109

== ENCOUNTER 2019-11-01 20:50 | Inpatient (IN) ==
[2019-11-01] MEDS ORDERED: ATIVAN TAB 1 MG PO PRN (22:04)
[2019-11-01] MEDS ORDERED: ROXANOL ORAL SOLN 20MG UDC PO PRN (22:04)
[2019-11-01] MEDS ORDERED: LEVSIN ORAL DROPS PO PRN (22:04)
[2019-11-01] MEDS ORDERED: DESITIN OINT TOP PRN (23:24)
[2019-11-02 03:44] VITALS: BMI 44.5
[2019-11-02] MEDS ORDERED: HumuLIN R SC PRN (09:07)
[2019-11-02] MEDS ORDERED: ROXANOL ORAL SOLN 20MG UDC PO PRN (09:10)
[2019-11-02] MEDS ORDERED: JANUVIA PO SCH (09:15)
[2019-11-02] MEDS ORDERED: LOPRESSOR TAB 25 MG PO SCH (10:00)
[2019-11-02] MEDS ORDERED: ALDACTONE TAB 25 MG PO SCH (10:00)
[2019-11-02] MEDS ORDERED: FOLIC ACID TAB 1 MG PO SCH (10:00)
[2019-11-02] MEDS ORDERED: PROTONIX TAB 40 MG PO SCH (10:00)
[2019-11-02] MEDS ORDERED: ZYLOPRIM PO SCH (10:00)
[2019-11-02 12:37] VITALS: BP 114/56
--- NOTE | 2019-11-02 13:25 | DR.H&P ---
H&P History & Physical for Day of: H&P Date: 11/02/19 Chief Complaint Chief Complaint: failure to thrive, aspiration Allergies Allergies Allergy/AdvReac Type Severity Reaction Status Date / Time minocycline Allergy Verified 08/11/19 19: rifampin Allergy Verified 08/11/19 19: History of Present Illness History of Present Illness: Mr. Marroquin is a 68y/o male with a PMH of atrial fibrillation, AV replacement, CABG, cirrhosis, COPD, CAD, anemia was admitted to our facility last month with severe anemia due to coagulopathy and had to be transferred to [facility] due to critical condition. Patient continued to be anemia there requiring more blood products. He was stabilized for EGD and colonoscopy. Both studies did not show any acute bleed. Patient's anemia was likely warfarin induced. He was also very altered and confused but that has resolved now. Patient had been on narcotics, benzos and methadone which were all stopped over there and patient's mental status has improved. He was treated for aspiration pneumonia and has been evaluated by speech and put on specific thick nectar diet. Patient was transferred back to us for further care and re habilitation. Patient alert and oriented this AM, reports doing well. He ate all his meal and denies any acute issues. He has been ambulating around the room. Past Medical History Past Medical History: Anemia, Anxiety, Arthritis, Cirrhosis, CHF, COPD, Coronary Artery Disease, GERD, Gout, Hypertension, Liver Disease and Renal Disease Past Surgical History Surgical History: CABG/Valve Surgery, Ortho Surgery and Other Additional Surgical History: IVC filter Family History Family Medical History: Diabetes Mellitus Social History Type of Tobacco Use: None Alcohol Use: None Drug Use: None Prescription drug monitoring program results: PDMP was not reviewed Medications Home Medications: minocycline Allergy (Verified 08/11/19 19:32) rifampin Allergy (Verified 08/11/19 19:) CONTINUE taking the following medications allopurinol 100 mg PO DAILY 11/02/19 [History] cephalexin 500 mg PO Q8H 11/02/19 [History] diphenoxylate-atropine 1 tab PO Q8H PRN 11/02/19 [History] folic acid 1 mg PO DAILY 11/02/19 [History] metolazone 5 mg PO DAILY 11/02/19 [History] mupirocin 1 applic TOPICAL BID PRN 11/02/19 [History] ondansetron HCl 8 mg PO Q8H PRN 11/02/19 [History] oxycodone 10 mg PO QID 11/02/19 [History] potassium chloride 10 meq PO DAILY 11/02/19 [History] sitagliptin 50 mg PO DAILY 11/02/19 [History] torsemide 100 mg PO DAILY 11/02/19 [History] Review of Systems Constitutional: Weakness Eyes: No Symptoms Reported ENT: No Symptoms Reported Respiratory: SOB with Excertion Cardiovascular: Edema Gastrointestinal: No Symptoms Reported Genitourinary: No Symptoms Reported Musculoskeletal: Back Pain Skin: Wound Neurological: No Symptoms Reported and Weakness Physical Exam Vital Signs: Temperature 98.2 F Pulse Rate [Left Radial] 96 Respiratory Rate 18 Blood Pressure [Right Arm] 114/56 O2 Sat by Pulse Oximetry 100 Oriented: Normal Eyes: Normal Respiratory: Diminished Throughout Cardiovascular: Normal and Edema Palpation: Normal Tenderness: Normal Skin: Bruising and Other (b/l forearm and hands edematous ) Psychiatric: Normal Mood Description: Calm Affect: Normal Speech Pattern: Clear and Appropriate Assessment/Plan (1) Generalized weakness: Status: Acute Plan: due to prolonged hospitalization, PT/OT consult (2) Hx pulmonary embolism: Status: Acute Plan: IVC filter, not on anticoagulation due to recent bleeding (3) Mechanical heart valve present: Status: Acute (4) Cirrhosis: Qualifiers: Ascites presence: unspecified Hepatic cirrhosis type: unspecified hepatic cirrhosis Qualified Code(s): K74.60 - Unspecified cirrhosis of liver Status: Acute (5) Aspiration pneumonia: Qualifiers: Aspiration pneumonia type: unspecified Laterality: unspecified laterality Lung location: unspecified part of lung Qualified Code(s): J69.0 - Pneumonitis due to inhalation of food and vomit Status: Acute Plan: evaluated by speech there and had modified barium swallow in [facility], high risk for aspiration. Diet: nectar thick liquids (6) Chronic kidney disease (CKD) stage G5/A1, glomerular filtration rate (GFR) less than or equal to 15 mL/min/1.73 square meter and albuminuria creatinine ratio less than 30 mg/g: Status: Acute Plan: will check CMP to assess renal function (7) Sacral decubitus ulcer: Qualifiers: Pressure injury stage: unspecified pressure injury stage Qualified Code(s): L89.159 - Pressure ulcer of sacral region, unspecified stage Status: Acute Plan: wound care (8) Anemia: Qualifiers: Anemia type: unspecified type Qualified Code(s): D64.9 - Anemia, unspecified Status: Acute Plan: Recent bleed due to warfarin, EGD and colonoscopy did not show any active bleed. Patient is currently not bleeding. 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
[2019-11-02] MEDS ORDERED: SNACK - Diabetic Appropriate PO SCH (20:00)
[2019-11-02] MEDS ORDERED: NEURONTIN CAP 400 MG PO SCH (21:00)
[2019-11-02] MEDS ORDERED: LIPITOR TAB 40 MG PO SCH (21:00)
[2019-11-02] MEDS ORDERED: FLOMAX PO SCH (21:00)
[2019-11-02] MEDS ORDERED: PLAQUENIL PO SCH (21:00)
[2019-11-02] MEDS ORDERED: SEROquel TAB 25 mg PO SCH (21:00)
[2019-11-03] MEDS ORDERED: TOUJEO SOLOSTAR PEN SC SCH (09:00)
== END 2019-11-02 13:00 | disposition short-term general hospital (02) | DRG 179 ==
LOC: MED/SURG 21:00
PROVIDERS: ADMIT Internal Medicine; ATTEND Internal Medicine
DX: R53.1 Weakness; Z79.4 Long term (current) use of insulin; L89.159 Pressure ulcer of sacral region, unspecified stage; D64.9 Anemia, unspecified; I48.91 Unspecified atrial fibrillation; E11.65 Type 2 diabetes mellitus with hyperglycemia; N18.9 Chronic kidney disease, unspecified; K74.60 Unspecified cirrhosis of liver; J69.0 Pneumonitis due to inhalation of food and vomit; Z51.5 Encounter for palliative care; R62.7 Adult failure to thrive; Z86.711 Personal history of pulmonary embolism; Z95.2 Presence of prosthetic heart valve

== ENCOUNTER 2019-11-02 13:00 | Inpatient (IN) ==
[2019-11-02 14:51] VITALS: BMI 43.9
[2019-11-02 15:22] LABS: BASOPHILS % (AUTO) 0.4 % (0.2-1.0); EOSINOPHILS % (AUTO) 0.2 % (0.9-2.9); HEMATOCRIT 26.5 % (42.0-54.0); HEMOGLOBIN 8.7 g/dL (13.5-18.0); LYMPHOCYTES # (AUTO) 0.4 X10^3/uL (1.3-2.9); LYMPHOCYTES % (AUTO) 6.5 % (21.0-51.0); MEAN CORPUSCULAR HEMOGLOBIN 31.2 pg (27.0-34.0); MEAN CORPUSCULAR HGB CONC 32.8 g/dL (33.0-35.0); MEAN PLATELET VOLUME 10.1 fL (7.4-11.0); MONOCYTES # (AUTO) 0.4 x10^3/uL (0.3-0.8); MONOCYTES % (AUTO) 6.7 % (0.0-13.0); NEUTROPHILS # (AUTO) 5.6 x10^3/uL (2.2-4.8); NEUTROPHILS % (AUTO) 86.2 % (42.0-75.0); PLATELET COUNT 114 X10^3/uL (150.0-450.0); RED BLOOD COUNT 2.79 X10^6/uL (4.7-6.0); RED CELL DISTRIBUTION WIDTH 18.7 % (11.6-16.5); WHITE BLOOD COUNT 6.5 X10^3/uL (3.6-10.0)
[2019-11-02 15:48] LABS: ALBUMIN 2.4 g/dL (3.4-5.0); CALCIUM 8.3 mg/dL (8.5-10.1); CARBON DIOXIDE 31.5 mmol/L (21-32); COR CA(FOR HYPOALB) 9.6 mg/dL (8.5-10.1); CREATININE 1.56 mg/dL (0.70-1.30); TOTAL PROTEIN 5.6 g/dL (6.4-8.2)
[2019-11-02] MEDS ORDERED: D5W + KCL 20 MEQ/L 1,000 ML IV SCH ×2 (17:00→22:16)
[2019-11-02] MEDS ORDERED: D5 1/2 NS + KCL 20 MEQ/L 1,000 ML IV ONE (17:00)
[2019-11-02] MEDS ORDERED: K-DUR TAB 20 MEQ PO ONE (17:01)
[2019-11-02] MEDS ORDERED: D5 1/2 NS 1000 ML 1,000 ML with POTASSIUM CHLORIDE INJ 10 MEQ VIAL 10 MEQ IV ONE ×2 (17:39)
[2019-11-02] MEDS: K-DUR TAB 20 MEQ PO SCH ×2 (18:01→21:53)
[2019-11-02 20:47] LABS: BLOOD UREA NITROGEN 44 mg/dL (7-18); CALCIUM 7.9 mg/dL (8.5-10.1); CARBON DIOXIDE 31.3 mmol/L (21-32); COR NA(FOR HYPERGLY) 155 mmol/L (136-145); CREATININE 1.48 mg/dL (0.70-1.30); eGFR NON BLACK RACES 50 (>60)
[2019-11-02 20:52] LABS: CHLORIDE 116 mmol/L (98-107); SODIUM 152 mmol/L (136-145)
[2019-11-02] MEDS ORDERED: SEROquel TAB 25 mg PO SCH (21:00)
[2019-11-02 21:32] LABS: CREATININE,URINE 137.01 mg/dL (40-278); SODIUM,URINE < 50 mmol/L (40-220)
[2019-11-02] MEDS ORDERED: POTASSIUM CHL 40 MEQ/NS 0.45% 500 ML 40 MEQ/500 ML BAG IV ONE (21:32)
[2019-11-02] MEDS: FLOMAX PO SCH (21:53)
[2019-11-02] MEDS: PLAQUENIL PO SCH (21:54)
[2019-11-02] MEDS: LIPITOR TAB 40 MG PO SCH (21:54)
[2019-11-02] MEDS: NEURONTIN CAP 400 MG PO SCH (21:54)
[2019-11-02] MEDS: LOPRESSOR TAB 25 MG PO SCH (21:54)
[2019-11-02] MEDS: SNACK - Diabetic Appropriate PO SCH (21:55)
[2019-11-02] MEDS ORDERED: D5 IV ONE ×2 (21:58)
[2019-11-02] MEDS ORDERED: 1/2 NS IV ONE ×2 (21:58)
[2019-11-02] MEDS ORDERED: POTASSIUM CHLORIDE IV ONE ×2 (21:58)
[2019-11-03 00:53] LABS: BLOOD UREA NITROGEN 42 mg/dL (7-18); CALCIUM 7.9 mg/dL (8.5-10.1); CARBON DIOXIDE 32.2 mmol/L (21-32); COR NA(FOR HYPERGLY) 154 mmol/L (136-145); CREATININE 1.46 mg/dL (0.70-1.30); eGFR NON BLACK RACES 51 (>60)
[2019-11-03 01:00] LABS: CHLORIDE 116 mmol/L (98-107); SODIUM 152 mmol/L (136-145)
[2019-11-03 05:42] LABS: BASOPHILS % (AUTO) 0.4 % (0.2-1.0); EOSINOPHILS # (AUTO) 0.1 x10^3/uL (0.0-0.2); EOSINOPHILS % (AUTO) 1.5 % (0.9-2.9); LYMPHOCYTES # (AUTO) 0.4 X10^3/uL (1.3-2.9); MEAN CORPUSCULAR HEMOGLOBIN 31.8 pg (27.0-34.0); MEAN CORPUSCULAR HGB CONC 33.3 g/dL (33.0-35.0); MEAN CORPUSCULAR VOLUME 95.5 fL (80.0-100.0); MEAN PLATELET VOLUME 10.9 fL (7.4-11.0); MONOCYTES # (AUTO) 0.5 x10^3/uL (0.3-0.8); MONOCYTES % (AUTO) 9.5 % (0.0-13.0); NEUTROPHILS # (AUTO) 3.8 x10^3/uL (2.2-4.8); NEUTROPHILS % (AUTO) 79.6 % (42.0-75.0); PLATELET COUNT 93 X10^3/uL (150.0-450.0); RED BLOOD COUNT 2.52 X10^6/uL (4.7-6.0); RED CELL DISTRIBUTION WIDTH 17.7 % (11.6-16.5); WHITE BLOOD COUNT 4.8 X10^3/uL (3.6-10.0)
[2019-11-03 05:43] LABS: BLOOD UREA NITROGEN 41 mg/dL (7-18); CALCIUM 7.8 mg/dL (8.5-10.1); CARBON DIOXIDE 31.5 mmol/L (21-32); COR NA(FOR HYPERGLY) 156 mmol/L (136-145); CREATININE 1.47 mg/dL (0.70-1.30); eGFR NON BLACK RACES 51 (>60)
[2019-11-03 06:02] LABS: CHLORIDE 118 mmol/L (98-107); SODIUM 154 mmol/L (136-145)
[2019-11-03] MEDS ORDERED: D5W + KCL 20 MEQ/L 1,000 ML IV SCH (08:00)
[2019-11-03] MEDS: FOLIC ACID TAB 1 MG PO SCH (08:13)
[2019-11-03] MEDS: NEURONTIN CAP 400 MG PO SCH ×2 (08:14→21:34)
[2019-11-03] MEDS: ALDACTONE TAB 25 MG PO SCH (08:14)
[2019-11-03] MEDS: K-DUR TAB 20 MEQ PO SCH ×2 (08:14→21:34)
[2019-11-03] MEDS: PROTONIX TAB 40 MG PO SCH (08:14)
[2019-11-03] MEDS: LOPRESSOR TAB 25 MG PO SCH ×2 (08:15→21:52)
[2019-11-03] MEDS: ZYLOPRIM PO SCH (08:15)
[2019-11-03] MEDS: PLAQUENIL PO SCH ×2 (08:15→21:34)
[2019-11-03] MEDS: JANUVIA PO SCH (08:19)
[2019-11-03] MEDS: TOUJEO SOLOSTAR PEN SC SCH (08:34)
[2019-11-03] MEDS: DUONEB 0.5 MG/3 MG (3 mL) NEB SCH ×3 (09:52→17:13)
[2019-11-03] MEDS ORDERED: GEODON INJ IM NR (10:00)
--- NOTE | 2019-11-03 10:05 | PCM.PROG ---
Progress Note Progress Note for Day of Date of Exam: 11/03/19 Subjective Subjective: Patient seen at bedside with son present. Patient drowsy today, not as active and alert as yesterday. Son reports similar behavior in [place], patient would have a good day and then 2 bad days where he doesn't wake up. Patient opens eyes and answers yes and no questions. He denies any complaints. Labs done yesterday showed hypernatremia and hypokalemia. Patient was started on D5 but it was not available so he was started on D5 1/2 NS with Kcl. He has been having BMP every 4 hours. Will continue to monitor electrolytes closely. Patient had similar Na and K imbalance over in [facility]. Will start D5 with KCl, continue PO Potassium. Will get a CXR as patient has some wheezing on exam. Past Medical Family Social History Past Med/Fam/Surg Hx: No changes since H&P Allergies: Allergies minocycline Allergy (Verified 08/11/19 19:32) rifampin Allergy (Verified 08/11/19 19:32) Review of Systems ROS: No change since H&P Vital Signs and I&O's Vital Signs: Temperature 97.8 F Pulse Rate [Left Brachial] 81 Pulse Rate 83 Respiratory Rate 18 Blood Pressure [Left Arm] 105/55 Blood Pressure [Right Arm] 114/56 O2 Sat by Pulse Oximetry 99 Intake and Output: Intake & Output 10/31/19 11/01/19 11/02/19 11/03/19 23:59 23:59 23:59 23:59 Intake Total 2116 / 2116 0 / 0 Output Total 700 / 700 350 / 350 Balance 1416 / 1416 -350 / -350 Physical Exam Oriented: Person Respiratory: Diminished and Wheezes Cardiovascular: Normal and Edema Auscultation: Bowel Sounds: Normal Tenderness: Normal Skin: Wound and Other (chronic venous stasis ) Psychiatric: Normal Mood Description: Calm Affect: Normal Speech Pattern: Clear and Appropriate Laboratory and Diagnostics Result Diagrams: 11/03/19 05:01 11/03/19 05:01 Labs: Laboratory WBC 4.8 X10^3/uL (3.6-10.0) 11/03/19 05:01 RBC 2.52 X10^6/uL (4.7-6.0) L 11/03/19 05:01 Hgb 8.0 g/dL (13.5-18.0) L 11/03/19 05:01 Hct 24.0 % (42.0-54.0) L 11/03/19 05:01 MCV 95.5 fL (80.0-100.0) 11/03/19 05:01 MCH 31.8 pg (27.0-34.0) 11/03/19 05:01 MCHC 33.3 g/dL (33.0-35.0) 11/03/19 05:01 RDW 17.7 % (11.6-16.5) H 11/03/19 05:01 Plt Count 93 X10^3/uL (150.0-450.0) L 11/03/19 05:01 MPV 10.9 fL (7.4-11.0) 11/03/19 05:01 Neut % (Auto) 79.6 % (42.0-75.0) H 11/03/19 05:01 Lymph % (Auto) 9.0 % (21.0-51.0) L 11/03/19 05:01 Coleman % (Auto) 9.5 % (0.0-13.0) 11/03/19 05:01 Eos % (Auto) 1.5 % (0.9-2.9) 11/03/19 05:01 Baso % (Auto) 0.4 % (0.2-1.0) 11/03/19 05:01 Neut # (Auto) 3.8 x10^3/uL (2.2-4.8) 11/03/19 05:01 Lymph # (Auto) 0.4 X10^3/uL (1.3-2.9) L 11/03/19 05:01 Coleman # (Auto) 0.5 x10^3/uL (0.3-0.8) 11/03/19 05:01 Eos # (Auto) 0.1 x10^3/uL (0.0-0.2) 11/03/19 05:01 Baso # (Auto) 0.0 X10^3/uL (0.0-0.1) 11/03/19 05:01 Absolute Nucleated RBC 0.2 /100WBC 11/03/19 05:01 Sodium 154 mmol/L (136-145) H* 11/03/19 05:01 Corrected Sodium 156 mmol/L (136-145) H 11/03/19 05:01 Potassium 3.2 mmol/L (3.5-5.1) L 11/03/19 05:01 Chloride 118 mmol/L (98-107) H* 11/03/19 05:01 Carbon Dioxide 31.5 mmol/L (21-32) 11/03/19 05:01 BUN 41 mg/dL (7-18) H 11/03/19 05:01 Creatinine 1.47 mg/dL (0.70-1.30) H 11/03/19 05:01 Est GFR (MDRD) Af Amer > 60 (>60) 11/03/19 05:01 Est GFR (MDRD) Non-Af 51 (>60) L 11/03/19 05:01 Glucose 193 mg/dL (65-99) H 11/03/19 05:01 Calculated Osmolality 348 mOsm/kg (285-295) H 11/02/19 15:10 Calcium 7.8 mg/dL (8.5-10.1) L 11/03/19 05:01 Corrected Calcium 9.6 mg/dL (8.5-10.1) 11/02/19 15:10 Magnesium 2.0 mg/dL (1.7-2.9) 11/02/19 20:23 Total Bilirubin 0.50 mg/dL (0.2-1.0) 11/02/19 15:10 AST 47 Units/L (15-37) H 11/02/19 15:10 ALT 27 Units/L (12-78) 11/02/19 15:10 Alkaline Phosphatase 109 Units/L (46-116) 11/02/19 15:10 Total Protein 5.6 g/dL (6.4-8.2) L 11/02/19 15:10 Albumin 2.4 g/dL (3.4-5.0) L 11/02/19 15:10 Globulin 3.2 g/dL (2.5-4.5) 11/02/19 15:10 Albumin/Globulin Ratio 0.8 Ratio (1.1-2.1) L 11/02/19 15:10 Ur Random Sodium < 50 mmol/L (40-220) 11/02/19 21:11 Urine Creatinine 137.01 mg/dL (40-278) 11/02/19 21:11 Plan (1) Hypernatremia: Status: Acute Plan: Na: 160 and now 156, will continue to check BMP every 4 hrs Switch to D5 with KCl at 80cc/hr, adjust as needed (2) Hypokalemia: Status: Acute Plan: Improving, continue IV and PO as needed (3) Diabetes: Status: Acute Qualifiers: Diabetes mellitus complication status: without complication Diabetes mellitus shelter insulin 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 Diabetes mellitus type: type 2 Qualified Code(s): E11.9 - Type 2 diabetes mellitus without complications; Z79.4 - halfway (current) use of insulin Plan: continue Toujeo, SSI , monitor closely with D5 (4) Aspiration pneumonia: Status: Acute Qualifiers: Aspiration pneumonia type: unspecified Laterality: unspecified laterality Lung location: unspecified part of lung Qualified Code(s): J69.0 - Pneumonitis due to inhalation of food and vomit Plan: Will get an CXR, finished course of antibiotics (5) Sacral decubitus ulcer: Status: Acute Qualifiers: Pressure injury stage: unspecified pressure injury stage Qualified Code(s): L89.159 - Pressure ulcer of sacral region, unspecified stage Plan: continue wound care (6) Generalized weakness: Status: Acute Plan: PT/OT once stable. Due to prolonged hospitalization (7) MICH (acute kidney injury): Status: Acute Plan: Stable at 1.47, improved from prev labs (8) Hx pulmonary embolism: Status: Acute Plan: IVC filter (9) Mechanical heart valve present: Status: Acute Plan: Was on coumadin, but due to bleeding that was stopped in [place]. H, monitor AM labs (10) Cirrhosis: Status: Acute Qualifiers: Ascites presence: unspecified Hepatic cirrhosis type: unspecified he patic cirrhosis Qualified Code(s): K74.60 - Unspecified cirrhosis of liver (11) GI bleed: Status: Acute Qualifiers: GI bleed type/associated pathology: melena Qualified Code(s): K92.1 - Melena Plan: recent EGD and colonoscopy did not show any active bleeding (12) Anemia: Status: Acute Qualifiers: Anemia type: unspecified type Qualified Code(s): D64.9 - Anemia, unspecified Plan: Hgb 8, monitor AM labs. Not on any blood thinners due to bleeding. (13) Warfarin-induced coagulopathy: Status: Acute Plan: Patient was on coumadin for mechanical aortic valve but due to recent bleed that has been stopped. No active bleeding. (14) AMS (altered mental status): Status: Acute Qualifiers: Altered mental status type: somnolence Qualified Code(s): R40.0 - Somnolence Plan: Patient not as awake and alert, will review medications. He did get Seroquel since it had been listed on his med list from [facility]. Will check ammonia.
[2019-11-03 10:35] LABS: BLOOD UREA NITROGEN 41 mg/dL (7-18); CALCIUM 7.8 mg/dL (8.5-10.1); CARBON DIOXIDE 31.8 mmol/L (21-32); COR NA(FOR HYPERGLY) 156 mmol/L (136-145); CREATININE 1.47 mg/dL (0.70-1.30); eGFR NON BLACK RACES 51 (>60)
[2019-11-03 10:46] LABS: SODIUM 153 mmol/L (136-145)
[2019-11-03 10:47] LABS: CHLORIDE 117 mmol/L (98-107)
--- NOTE | 2019-11-03 13:54 | RAD ---
HISTORYCongestion SOBSTUDYPortable AP [id number] cardiomegaly with sternal wires. Vascular congestion and d iffuse bilateral interstitial disease again noted.IMPRESSIONStable cardiomegaly with postsurgical fin dings. Pulmonary vascular congestion. Diffuse bilateral interstitial increase may represent chronic s carring, although a more acute congestive process cannot be excluded.Electronically signed by: YAQUELIN SHARPE (Nov 03, 2019 13:53:41)
[2019-11-03] MEDS: D5W + KCL 20 MEQ/L 1,000 ML IV SCH ×2 (14:00→21:23)
[2019-11-03] MEDS ORDERED: ROCEPHIN VIAL 1 GRAM 1 G in NS 100 ML IV + SPIKE MINIBAG* 100 ML IV SCH (14:09)
[2019-11-03] MEDS ORDERED: TYLENOL 325 MG TAB PO ONE (14:10)
[2019-11-03] MEDS ORDERED: LASIX IVP SCH (15:00)
[2019-11-03 15:09] LABS: BLOOD UREA NITROGEN 41 mg/dL (7-18); CALCIUM 7.8 mg/dL (8.5-10.1); CARBON DIOXIDE 30.5 mmol/L (21-32); COR NA(FOR HYPERGLY) 155 mmol/L (136-145); CREATININE 1.43 mg/dL (0.70-1.30); eGFR NON BLACK RACES 52 (>60)
[2019-11-03 15:29] LABS: SODIUM 152 mmol/L (136-145)
[2019-11-03 15:30] LABS: CHLORIDE 117 mmol/L (98-107)
[2019-11-03] MEDS: TYLENOL 325 MG TAB PO ONE ×2 (15:44→19:35)
[2019-11-03] MEDS: HumuLIN R SC PRN ×2 (16:30→21:42)
[2019-11-03] MEDS: SNACK - Diabetic Appropriate PO SCH (21:23)
[2019-11-03] MEDS: FLAGYL TAB 500 MG PO SCH (21:34)
[2019-11-03] MEDS: LIPITOR TAB 40 MG PO SCH (21:35)
[2019-11-03] MEDS: FLOMAX PO SCH (21:35)
[2019-11-04] MEDS: DUONEB 0.5 MG/3 MG (3 mL) NEB SCH ×4 (00:43→16:22)
[2019-11-04] MEDS: HumuLIN R SC PRN ×4 (06:27→21:11)
[2019-11-04] MEDS: FLAGYL TAB 500 MG PO SCH ×3 (06:28→21:08)
[2019-11-04 06:33] LABS: BASOPHILS % (AUTO) 0.3 % (0.2-1.0); EOSINOPHILS % (AUTO) 0.5 % (0.9-2.9); HEMATOCRIT 26.4 % (42.0-54.0); HEMOGLOBIN 8.8 g/dL (13.5-18.0); LYMPHOCYTES # (AUTO) 0.4 X10^3/uL (1.3-2.9); LYMPHOCYTES % (AUTO) 6.6 % (21.0-51.0); MEAN CORPUSCULAR HEMOGLOBIN 31.4 pg (27.0-34.0); MEAN CORPUSCULAR HGB CONC 33.2 g/dL (33.0-35.0); MEAN CORPUSCULAR VOLUME 94.6 fL (80.0-100.0); MEAN PLATELET VOLUME 11.4 fL (7.4-11.0); MONOCYTES # (AUTO) 0.7 x10^3/uL (0.3-0.8); MONOCYTES % (AUTO) 9.8 % (0.0-13.0); NEUTROPHILS # (AUTO) 5.6 x10^3/uL (2.2-4.8); NEUTROPHILS % (AUTO) 82.8 % (42.0-75.0); PLATELET COUNT 107 X10^3/uL (150.0-450.0); RED BLOOD COUNT 2.79 X10^6/uL (4.7-6.0); RED CELL DISTRIBUTION WIDTH 17.9 % (11.6-16.5); WHITE BLOOD COUNT 6.8 X10^3/uL (3.6-10.0)
[2019-11-04 06:59] LABS: ALBUMIN 2.1 g/dL (3.4-5.0); CARBON DIOXIDE 26.8 mmol/L (21-32); COR CA(FOR HYPOALB) 9.5 mg/dL (8.5-10.1); CREATININE 1.74 mg/dL (0.70-1.30); TOTAL PROTEIN 5.3 g/dL (6.4-8.2)
[2019-11-04] MEDS ORDERED: TYLENOL 325 MG TAB PO PRN (07:41)
[2019-11-04] MEDS ORDERED: POTASSIUM CHL 40 MEQ/NS 0.45% 500 ML IV PRN ×2 (08:27→09:55)
[2019-11-04] MEDS ORDERED: K-RIDER 10 MEQ/NS 100 ML 10 MEQ/100 ML BAG IV PRN (08:27)
[2019-11-04] MEDS ORDERED: K-DUR TAB 20 MEQ PO PRN ×2 (08:27→09:55)
[2019-11-04] MEDS ORDERED: POTASSIUM CHLORIDE LIQ 20 MEQ UDC PO PRN ×2 (08:27→09:57)
[2019-11-04] MEDS ORDERED: KLOR-CON PO PRN (08:27)
[2019-11-04] MEDS ORDERED: POTASSIUM CHL 60 MEQ/NS 0.45% 500 ML IV PRN (08:27)
[2019-11-04] MEDS ORDERED: MICRO K EXTEN CAP 10 MEQ PO PRN (08:27)
[2019-11-04] MEDS ORDERED: LASIX IVP SCH (09:00)
[2019-11-04] MEDS ORDERED: LASIX PO SCH (09:00)
[2019-11-04] MEDS: PLAQUENIL PO SCH ×2 (09:10→21:08)
[2019-11-04] MEDS: LOPRESSOR TAB 25 MG PO SCH ×2 (09:10→21:11)
[2019-11-04] MEDS: ZYLOPRIM PO SCH (09:10)
[2019-11-04] MEDS: NEURONTIN CAP 400 MG PO SCH ×2 (09:10→21:25)
[2019-11-04] MEDS: FOLIC ACID TAB 1 MG PO SCH (09:10)
[2019-11-04] MEDS: PROTONIX TAB 40 MG PO SCH (09:10)
[2019-11-04] MEDS: ALDACTONE TAB 25 MG PO SCH (09:10)
[2019-11-04] MEDS: JANUVIA PO SCH (09:10)
[2019-11-04] MEDS: TYLENOL 325 MG TAB PO PRN ×2 (09:19→21:08)
[2019-11-04] MEDS: MAXIPIME VIAL 1 GRAM 1 G in NS 50 ML IV + SPIKE MINIBAG* 50 ML IV SCH ×3 (09:20→21:20)
[2019-11-04] MEDS: TOUJEO SOLOSTAR PEN SC SCH (09:34)
--- NOTE | 2019-11-04 09:49 | PCM.PROG ---
Progress Note Progress Note for Day of Date of Exam: 11/04/19 Subjective Subjective: Patient seen at bedside, son present. He states patient was sleepy yesterday but looks more alert today. He has been coughing and wheezing more. He is currently on NC. He had a temp yesterday of 100.5, CXR showed increased congestion and interstitial infiltrate. He was started on Rocephin/Flagyl and also received IV Lasix. This morning his Na is 149, Cr slightly elevated at 1.74, K 3.3. Will repeat CXR today. Stop IVF, give another dose of IV Lasix. He had a temp of 103 this AM, will switch to Cefepime for Pseudomonal coverage. KUB ordered due to abdominal distension noted. Past Medical Family Social History Past Med/Fam/Surg Hx: No changes since H&P Allergies: Allergies minocycline Allergy (Verified 08/11/19 19:32) rifampin Allergy (Verified 08/11/19 19:32) Review of Systems ROS: No change since H&P Vital Signs and I&O's Vital Signs: Temperature 103.1 F Pulse Rate [Left Brachial] 125 Pulse Rate 115 Respiratory Rate 30 Blood Pressure [Left Arm] 124/66 Blood Pressure [Right Arm] 114/56 O2 Sat by Pulse Oximetry 93 Intake and Output: Intake & Output 11/01/19 11/02/19 11/03/19 11/04/19 23:59 23:59 23:59 23:59 Intake Total 2116 / 2116 1460 / 1460 0 / 0 Output Total 700 / 700 1000 / 1000 400 / 400 Balance 1416 / 1416 460 / 460 -400 / -400 Physical Exam Oriented: Normal Respiratory: Wheezes and Rhonchi Cardiovascular: Tachycardia and Edema Auscultation: Bowel Sounds: Increased and High Pitched Tenderness: Normal Skin: Wound and Other (chronic venous stasis ) Psychiatric: Normal Mood Description: Calm Affect: Normal Laboratory and Diagnostics Result Diagrams: 11/04/19 05:13 11/04/19 05:31 Labs: 11/03/19 11:19 Sputum - Expectorated Sputum Sputum Culture - Preliminary 11/03/19 11:19 Sputum - Expectorated Sputum - Final Laboratory WBC 6.8 X10^3/uL (3.6-10.0) 11/04/19 05:13 RBC 2.79 X10^6/uL (4.7-6.0) L 11/04/19 05:13 Hgb 8.8 g/dL (13.5-18.0) L 11/04/19 05:13 Hct 26.4 % (42.0-54.0) L 11/04/19 05:13 MCV 94.6 fL (80.0-100.0) 11/04/19 05:13 MCH 31.4 pg (27.0-34.0) 11/04/19 05:13 MCHC 33.2 g/dL (33.0-35.0) 11/04/19 05:13 RDW 17.9 % (11.6-16.5) H 11/04/19 05:13 Plt Count 107 X10^3/uL (150.0-450.0) L 11/04/19 05:13 MPV 11.4 fL (7.4-11.0) H 11/04/19 05:13 Neut % (Auto) 82.8 % (42.0-75.0) H 11/04/19 05:13 Lymph % (Auto) 6.6 % (21.0-51.0) L 11/04/19 05:13 Butler % (Auto) 9.8 % (0.0-13.0) 11/04/19 05:13 Eos % (Auto) 0.5 % (0.9-2.9) L 11/04/19 05:13 Baso % (Auto) 0.3 % (0.2-1.0) 11/04/19 05:13 Neut # (Auto) 5.6 x10^3/uL (2.2-4.8) H 11/04/19 05:13 Lymph # (Auto) 0.4 X10^3/uL (1.3-2.9) L 11/04/19 05:13 Butler # (Auto) 0.7 x10^3/uL (0.3-0.8) 11/04/19 05:13 Eos # (Auto) 0.0 x10^3/uL (0.0-0.2) 11/04/19 05:13 Baso # (Auto) 0.0 X10^3/uL (0.0-0.1) 11/04/19 05:13 Absolute Nucleated RBC 0.9 /100WBC 11/04/19 05:13 PT 21.6 SECONDS (11.8-14.3) 11/03/19 05:01 INR Target Range - 11/03/19 05:01 INR 1.95 (0.8-1.3) H 11/03/19 05:01 APTT 30.8 SECONDS (22.9-36.5) 11/03/19 05:01 PTT Comment - 11/03/19 05:01 Sodium 149 mmol/L (136-145) H 11/04/19 05:31 Corrected Sodium 153 mmol/L (136-145) H 11/04/19 05:31 Potassium 3.3 mmol/L (3.5-5.1) L 11/04/19 05:31 Chloride 115 mmol/L (98-107) H* 11/04/19 05:31 Carbon Dioxide 26.8 mmol/L (21-32) 11/04/19 05:31 BUN 43 mg/dL (7-18) H 11/04/19 05:31 Creatinine 1.74 mg/dL (0.70-1.30) H 11/04/19 05:31 Est GFR (MDRD) Af Amer 51 (>60) L 11/04/19 05:31 Est GFR (MDRD) Non-Af 42 (>60) L 11/04/19 05:31 Glucose 269 mg/dL (65-99) H 11/04/19 05:31 POC Glucose (mg/dL) 270 mg/dL (65-99) H 11/04/19 06:09 Calculated Osmolality 348 mOsm/kg (285-295) H 11/02/19 15:10 Calcium 8.0 mg/dL (8.5-10.1) L 11/04/19 05:31 Corrected Calcium 9.5 mg/dL (8.5-10.1) 11/04/19 05:31 Magnesium 2.1 mg/dL (1.7-2.9) 11/04/19 05:31 Total Bilirubin 0.80 mg/dL (0.2-1.0) 11/04/19 05:31 AST 56 Units/L (15-37) H 11/04/19 05:31 ALT 33 Units/L (12-78) 11/04/19 05:31 Alkaline Phosphatase 127 Units/L (46-116) H 11/04/19 05:31 Ammonia 14 umol/L (11-32) 11/03/19 10:59 Total Protein 5.3 g/dL (6.4-8.2) L 11/04/19 05:31 Albumin 2.1 g/dL (3.4-5.0) L 11/04/19 05:31 Globulin 3.2 g/dL (2.5-4.5) 11/04/19 05:31 Albumin/Globulin Ratio 0.7 Ratio (1.1-2.1) L 11/04/19 05:31 Ur Random Sodium < 50 mmol/L (40-220) 11/02/19 21:11 Urine Creatinine 137.01 mg/dL (40-278) 11/02/19 21:11 Plan (1) Hypernatremia: Status: Acute Plan: Trending down, 149 this AM. Isaías DC fluids due to fluid overload state. Monitor BMP (2) Hypokalemia: Status: Acute Plan: Continue PO replacement, avoid giving extra IVF (3) Diabetes: Status: Acute Qualifiers: Diabetes mellitus complication status: without complication Diabetes mellitus assisted insulin use: with nurse manager use Diabetes mellitus type: type 2 Qualified Code(s): E11.9 - Type 2 diabetes mellitus without complications; Z79.4 - [facility] (current) use of insulin Plan: continue Toujeo, YARI (4) Aspiration pneumonia: Status: Acute Qualifiers: Aspiration pneumonia type: unspecified Laterality: unspecified laterality Lung location: unspecified part of lung Qualified Code(s): J69.0 - Pneumonitis due to inhalation of food and vomit Plan: Currently on Rocephin/Flagyl. Temp 103 this AM, will switch to Cefepime/Flagyl for Pseudomonal coverage. Repeat CXR this AM. (5) Sacral decubitus ulcer: Status: Acute Qualifiers: Pressure injury stage: unspecified pressure injury stage Qualified Code(s): L89.159 - Pressure ulcer of sacral region, unspecified stage Plan: continue wound care (6) Generalized weakness: Status: Acute Plan: PT/OT once stable. Due to prolonged hospitalization (7) MICH (acute kidney injury): Status: Acute Plan: Slightly up this AM, monitor labs (8) Hx pulmonary embolism: Status: Acute Plan: IVC filter (9) Mechanical heart valve present: Status: Acute Plan: Was on coumadin, but due to bleeding that was stopped in [place]. H, monitor AM labs (10) Cirrhosis: Status: Acute Qualifiers: Ascites presence: unspecified Hepatic cirrhosis type: unspecified hepatic cirrhosis Qualified Code(s): K74.60 - Unspecified cirrhosis of liver (11) GI bleed: Status: Acute Qualifiers: GI bleed type/associated pathology: melena Qualified Code(s): K92.1 - Melena Plan: recent EGD and colonoscopy did not show any active bleeding (12) Anemia: Status: Acute Qualifiers: Anemia type: unspecified type Qualified Code(s): D64.9 - Anemia, unspecified Plan: Hgb 8.8, monitor AM labs. Not on any blood thinners due to bleeding. (13) Warfarin-induced coagulopathy: Status: Acute Plan: Patient was on coumadin for mechanical aortic valve but due to recent bleed that has been stopped. No active bleeding. (14) AMS (altered mental status): Status: Acute Qualifiers: Altered mental status type: somnolence Qualified Code(s): R40.0 - Somnolence Plan: Ammonia normal, sedation likely 2/2 to Seroquel the previous night. Patient more alert this morning. Continue to monitor.
[2019-11-04] MEDS: K-DUR TAB 20 MEQ PO SCH (10:00)
--- NOTE | 2019-11-04 11:21 | RAD ---
HISTORYCough and feverSTUDYAP [id number]/2020FINDINGSNo change in heart size or contour. Lung volumes remain low with elevated diaphragm. Apparent interval improvement in aeration of the lungs with decreasing interstitial infiltrates. There is residual interstitial prominence and mild bibasal atelectasis.IMPRESSIONInterval improvement in appearance of the lungs as noted. This is consistent with decreasing perivascular edema. The relatively rapid change overnight is against diagnosis of primary pneumonia.Electronically signed by: YAQUELIN SHARPE (Nov 04, 2019 11:20:35)
--- NOTE | 2019-11-04 13:54 | RAD ---
[id number]/2019FINDINGSThere are multiple loops of mildly dilated colon throu ghout the abdomen. There is no obvious bowel wall thickening. The small bowel is normal caliber. Ther e is no free air and no abnormal calcifications are seen. There are IVC filters in place along the mi d lumbar region which are unchanged. There are pedicle screws in place inferiorly which are unchanged IMPRESSIONQuestionable diffuse colonic ileus or possible developing distal colonic obstruction which is more prominent. Recommend short-term follow-up.Electronically signed by: MINH CARRIZALES (Nov 04 13:53:05)
[2019-11-04 15:42] LABS: CALCIUM 8.1 mg/dL (8.5-10.1); CARBON DIOXIDE 23.9 mmol/L (21-32); CREATININE 2.3 mg/dL (0.70-1.30)
[2019-11-04 16:47] LABS: BASOPHILS % (AUTO) 0.4 % (0.2-1.0); EOSINOPHILS % (AUTO) 0.4 % (0.9-2.9); HEMATOCRIT 27.1 % (42.0-54.0); HEMOGLOBIN 8.7 g/dL (13.5-18.0); LYMPHOCYTES # (AUTO) 0.5 X10^3/uL (1.3-2.9); LYMPHOCYTES % (AUTO) 5.7 % (21.0-51.0); MEAN CORPUSCULAR HEMOGLOBIN 30.7 pg (27.0-34.0); MEAN CORPUSCULAR HGB CONC 32.1 g/dL (33.0-35.0); MEAN CORPUSCULAR VOLUME 95.4 fL (80.0-100.0); MEAN PLATELET VOLUME 11.2 fL (7.4-11.0); NEUTROPHILS # (AUTO) 7.2 x10^3/uL (2.2-4.8); NEUTROPHILS % (AUTO) 82.5 % (42.0-75.0); PLATELET COUNT 111 X10^3/uL (150.0-450.0); RED BLOOD COUNT 2.84 X10^6/uL (4.7-6.0); RED CELL DISTRIBUTION WIDTH 18.4 % (11.6-16.5); WHITE BLOOD COUNT 8.8 X10^3/uL (3.6-10.0)
[2019-11-04 17:01] LABS: LACTIC ACID 2.5 mmol/L (0.4-2.0)
[2019-11-04] MEDS ORDERED: TYLENOL 325 MG TAB PO ONE (17:35)
[2019-11-04 18:15] LABS: BILIRUBIN,URINE 1+ (NEGATIVE); BLOOD/HEMOGLOBIN,URINE 4+ (NEGATIVE); GLUCOSE, URINE 1+ (NEGATIVE); KETONES,URINE 2+ (NEGATIVE); LEUKOCYTE ESTERASE ,URINE 2+ (NEGATIVE); NITRITES,URINE POSITIVE (NEGATIVE); PROTEIN,URINE 3+ (NEGATIVE); UROBILINOGEN,URINE 1+ (NORMAL)
[2019-11-04 18:26] LABS: APPEARANCE,URINE HAZY (CLEAR); COLOR,URINE DARK YELLOW (YELLOW)
[2019-11-04 18:27] LABS: BACTERIA,URINE 3+ /HPF (NEGATIVE); MUCUS,URINE FEW /HPF (NEGATIVE); SQUAMOUS EPITHELIAL CELL,UR FEW /HPF (NEGATIVE)
[2019-11-04] MEDS ORDERED: MORPHINE SULFATE INJ 2 MG INJ ONE (18:45)
[2019-11-04] MEDS: MORPHINE SULFATE INJ 2 MG INJ IVP PRN (18:47)
[2019-11-04] MEDS: LIPITOR TAB 40 MG PO SCH (21:08)
[2019-11-04] MEDS: SNACK - Diabetic Appropriate PO SCH (21:10)
[2019-11-05] MEDS: DUONEB 0.5 MG/3 MG (3 mL) NEB SCH ×4 (00:59→12:25)
[2019-11-05] MEDS: MORPHINE SULFATE INJ 2 MG INJ IVP PRN ×2 (04:35→09:23)
[2019-11-05 05:49] LABS: BASOPHILS % (AUTO) 0.4 % (0.2-1.0); EOSINOPHILS # (AUTO) 0.1 x10^3/uL (0.0-0.2); EOSINOPHILS % (AUTO) 1.4 % (0.9-2.9); HEMATOCRIT 26.8 % (42.0-54.0); HEMOGLOBIN 8.8 g/dL (13.5-18.0); LYMPHOCYTES # (AUTO) 0.4 X10^3/uL (1.3-2.9); LYMPHOCYTES % (AUTO) 5.8 % (21.0-51.0); MEAN CORPUSCULAR HEMOGLOBIN 31.3 pg (27.0-34.0); MEAN CORPUSCULAR HGB CONC 32.9 g/dL (33.0-35.0); MEAN CORPUSCULAR VOLUME 95.4 fL (80.0-100.0); MEAN PLATELET VOLUME 11.5 fL (7.4-11.0); MONOCYTES # (AUTO) 0.7 x10^3/uL (0.3-0.8); MONOCYTES % (AUTO) 9.3 % (0.0-13.0); NEUTROPHILS # (AUTO) 6.4 x10^3/uL (2.2-4.8); NEUTROPHILS % (AUTO) 83.1 % (42.0-75.0); PLATELET COUNT 92 X10^3/uL (150.0-450.0); RED BLOOD COUNT 2.81 X10^6/uL (4.7-6.0); RED CELL DISTRIBUTION WIDTH 19.2 % (11.6-16.5); WHITE BLOOD COUNT 7.7 X10^3/uL (3.6-10.0)
[2019-11-05 05:57] LABS: ALBUMIN 1.9 g/dL (3.4-5.0); CARBON DIOXIDE 27.5 mmol/L (21-32); COR CA(FOR HYPOALB) 9.7 mg/dL (8.5-10.1); CREATININE 2.65 mg/dL (0.70-1.30); TOTAL PROTEIN 5.1 g/dL (6.4-8.2)
[2019-11-05] MEDS: FLAGYL TAB 500 MG PO SCH (06:15)
[2019-11-05] MEDS: HumuLIN R SC PRN (06:37)
[2019-11-05] MEDS ORDERED: ATIVAN INJ 2 MG VIAL IVP PRN (08:51)
[2019-11-05] MEDS ORDERED: JANUVIA PO SCH (09:00)
[2019-11-05] MEDS: TOUJEO SOLOSTAR PEN SC SCH (09:28)
[2019-11-05] MEDS: NEURONTIN CAP 400 MG PO SCH (09:29)
[2019-11-05] MEDS: LOPRESSOR TAB 25 MG PO SCH (09:29)
[2019-11-05] MEDS: PROTONIX TAB 40 MG PO SCH (09:29)
[2019-11-05] MEDS: ZYLOPRIM PO SCH (09:30)
[2019-11-05] MEDS: FOLIC ACID TAB 1 MG PO SCH (09:30)
[2019-11-05] MEDS: PLAQUENIL PO SCH (09:30)
[2019-11-05 11:40] VITALS: BP 70/50
[2019-11-05] MEDS ORDERED: DURAGESIC 75 mcg/HR PATCH TD ONE (13:31)
--- NOTE | 2019-11-05 13:59 | W.DIS.FURT ---
Summary of Discharge Discharge Summary of Date Date of Exam: 11/05/19 Admission Date Date of Admission: 11/01/19 Admission Diagnosis Hospital Course: Mr. Marroquin is a 68y/o male with a PMH of atrial fibrillation, AV replacement, CABG, cirrhosis, COPD, CAD, anemia was admitted to our facility last month with severe anemia due to coagulopathy and had to be transferred to [facility] due to critical condition. Patient continued to be anemia there requiring more blood products. He was stabilized for EGD and colonoscopy. Both studies did not show any acute bleed. Patient's anemia was likely warfarin induced. He was also very altered and confused but that has resolved now. Patient had been on narcotics, benzos and methadone which were all stopped over there and patient's mental status has improved. He was treated for aspiration pneumonia and has been evaluated by speech and put on specific thick nectar diet. Patient was transferred back to us for further care and rehabilitation. Initially, patient was transferred back with hospice for comfort care but due to patient's improvement in mentation and alertness, hospice did not accept him and he was admitted as inpatient for further care. Patient's sodium was noted to be very high, 160 and low potassium so he was started on D5 with Kcl. His electrolytes were monitored very closely and fluids were adjusted as needed. His Cr continued to increase daily. Next day patient was noted to be in fluid overload due to IVF. He was given IV lasix and his respiratory status improved. He continued to be less alert and talkative. He also was spiking fevers so started on IV abx for aspiration pneumonia. KUB showed partial bowel obstruction so he was ket NPO. Due to patient's decline, patient's POA (son) decided to make patient DNR and pursue comfort care measures only. Patient's care and current state was discussed with family in detail and they decided to have the patient transferred to [place] for hospice care. Patient was transferred for comfort measures. Vital Signs: Vital Signs (72 hours) 11/02/19 16:00 11/02/19 20:00 11/03/19 00:00 Temperature 98.0 F 98.5 F 98.8 F Pulse Rate Pulse Rate [Left Brachial] 105 H 112 H 97 H Pulse Rate [Right Brachial] Respiratory Rate 20 20 25 H Blood Pressure [Left Arm] 126/59 120/56 125/58 Blood Pressure [Right Arm] O2 Sat by Pulse Oximetry 98 96 100 11/03/19 04:00 11/03/19 08:00 11/03/19 09:52 Temperature 97.8 F 100.0 F H Pulse Rate 83 Pulse Rate [Left Brachial] 81 83 Pulse Rate [Right Brachial] Respiratory Rate 18 20 Blood Pressure [Left Arm] 105/55 99/56 Blood Pressure [Right Arm] O2 Sat by Pulse Oximetry 95 95 99 11/03/19 12:00 11/03/19 12:20 11/03/19 15:07 Temperature 100.5 F H Pulse Rate 102 H Pulse Rate [Left Brachial] 90 Pulse Rate [Right Brachial] Respiratory Rate 24 18 Blood Pressure [Left Arm] 107/50 Blood Pressure [Right Arm] O2 Sat by Pulse Oximetry 98 100 11/03/19 16:00 11/03/19 16:07 11/03/19 17:13 Temperature 100.0 F H Pulse Rate 93 H Pulse Rate [Left Brachial] 92 H Pulse Rate [Right Brachial] Respiratory Rate 22 20 Blood Pressure [Left Arm] 180/63 Blood Pressure [Right Arm] O2 Sat by Pulse Oximetry 96 94 L 11/03/19 20:00 11/04/19 00:00 11/04/19 00:44 Temperature 97.2 F L 98.3 F Pulse Rate 115 H Pulse Rate [Left Brachial] 97 H 104 H Pulse Rate [Right Brachial] Respiratory Rate 18 25 H Blood Pressure [Left Arm] 96/53 110/85 Blood Pressure [Right Arm] O2 Sat by Pulse Oximetry 98 95 94 L 11/04/19 04:00 11/04/19 08:00 11/04/19 09:19 Temperature 98.2 F 103.1 F H Pulse Rate Pulse Rate [Left Brachial] 98 H 125 H Pulse Rate [Right Brachial] Respiratory Rate 24 30 H 30 H Blood Pressure [Left Arm] 103/69 124/66 Blood Pressure [Right Arm] O2 Sat by Pulse Oximetry 96 93 L 11/04/19 10:19 11/04/19 12:00 11/04/19 16:00 Temperature 100.2 F H 101.6 F H Pulse Rate Pulse Rate [Left Brachial] 108 H Pulse Rate [Right Brachial] 105 H Respiratory Rate 40 H 44 H 32 H Blood Pressure [Left Arm] 91/43 Blood Pressure [Right Arm] 93/51 O2 Sat by Pulse Oximetry 95 96 11/04/19 17:47 11/04/19 18:47 11/04/19 19:17 Temperature Pulse Rate Pulse Rate [Left Brachial] Pulse Rate [Right Brachial] Respiratory Rate 24 26 H 24 Blood Pressure [Left Arm] Blood Pressure [Right Arm] O2 Sat by Pulse Oximetry 11/04/19 20:00 11/04/19 21:08 11/04/19 21:45 Temperature 101.9 F H 99.4 F Pulse Rate Pulse Rate [Left Brachial] Pulse Rate [Right Brachial] 112 H Respiratory Rate 37 H 26 H Blood Pressure [Left Arm] 89/44 Blood Pressure [Right Arm] O2 Sat by Pulse Oximetry 91 L 11/04/19 22:08 11/05/19 00:00 11/05/19 04:00 Temperature 99.8 F H 98.0 F Pulse Rate Pulse Rate [Left Brachial] Pulse Rate [Right Brachial] 111 H 112 H Respiratory Rate 26 H 38 H 32 H Blood Pressure [Left Arm] 94/40 103/43 Blood Pressure [Right Arm] O2 Sat by Pulse Oximetry 93 L 94 L 11/05/19 04:35 11/05/19 05:05 11/05/19 08:00 Temperature 99.3 F Pulse Rate Pulse Rate [Left Brachial] Pulse Rate [Right Brachial] 118 H Respiratory Rate 32 H 24 29 H Blood Pressure [Left Arm] 106/54 Blood Pressure [Right Arm] O2 Sat by Pulse Oximetry 94 L 11/05/19 09:23 11/05/19 09:53 11/05/19 11:39 Temperature 99.6 F Pulse Rate Pulse Rate [Left Brachial] 111 H Pulse Rate [Right Brachial] Respiratory Rate 21 22 28 H Blood Pressure [Left Arm] 70/50 Blood Pressure [Right Arm] O2 Sat by Pulse Oximetry 94 L Labs: Laboratory Last Values WBC 7.7 X10^3/uL (3.6-10.0) 11/05/19 05:14 RBC 2.81 X10^6/uL (4.7-6.0) L 11/05/19 05:14 Hgb 8.8 g/dL (13.5-18.0) L 11/05/19 05:14 Hct 26.8 % (42.0-54.0) L 11/05/19 05:14 MCV 95.4 fL (80.0-100.0) 11/05/19 05:14 MCH 31.3 pg (27.0-34.0) 11/05/19 05:14 MCHC 32.9 g/dL (33.0-35.0) L 11/05/19 05:14 RDW 19.2 % (11.6-16.5) H 11/05/19 05:14 Plt Count 92 X10^3/uL (150.0-450.0) L 11/05/19 05:14 MPV 11.5 fL (7.4-11.0) H 11/05/19 05:14 Neut % (Auto) 83.1 % (42.0-75.0) H 11/05/19 05:14 Lymph % (Auto) 5.8 % (21.0-51.0) L 11/05/19 05:14 [place] % (Auto) 9.3 % (0.0-13.0) 11/05/19 05:14 Eos % (Auto) 1.4 % (0.9-2.9) 11/05/19 05:14 Baso % (Auto) 0.4 % (0.2-1.0) 11/05/19 05:14 Neut # (Auto) 6.4 x10^3/uL (2.2-4.8) H 11/05/19 05:14 Lymph # (Auto) 0.4 X10^3/uL (1.3-2.9) L 11/05/19 05:14 [place] # (Auto) 0.7 x10^3/uL (0.3-0.8) 11/05/19 05:14 Eos # (Auto) 0.1 x10^3/uL (0.0-0.2) 11/05/19 05:14 Baso # (Auto) 0.0 X10^3/uL (0.0-0.1) 11/05/19 05:14 Absolute Nucleated RBC 0.5 /100WBC 11/05/19 05:14 PT 21.6 SECONDS (11.8-14.3) 11/03/19 05:01 INR Target Range - 11/03/19 05:01 INR 1.95 (0.8-1.3) H 11/03/19 05:01 APTT 30.8 SECONDS (22.9-36.5) 11/03/19 05:01 PTT Comment - 11/03/19 05:01 Sodium 151 mmol/L (136-145) H* 11/05/19 05:14 Corrected Sodium 154 mmol/L (136-145) H 11/05/19 05:14 Potassium 4.0 mmol/L (3.5-5.1) 11/05/19 05:14 Chloride 117 mmol/L (98-107) H* 11/05/19 05:14 Carbon Dioxide 27.5 mmol/L (21-32) 11/05/19 05:14 BUN 54 mg/dL (7-18) H 11/05/19 05:14 Creatinine 2.65 mg/dL (0.70-1.30) H 11/05/19 05:14 Est GFR (MDRD) Af Amer 31 (>60) L 11/05/19 05:14 Est GFR (MDRD) Non-Af 26 (>60) L 11/05/19 05:14 Glucose 233 mg/dL (65-99) H 11/05/19 05:14 POC Glucose (mg/dL) 205 mg/dL (65-99) H 11/05/19 05:20 Calculated Osmolality 348 mOsm/kg (285-295) H 11/02/19 15:10 Lactic Acid 1.9 mmol/L (0.4-2.0) 11/04/19 20:56 Calcium 8.0 mg/dL (8.5-10.1) L 11/05/19 05:14 Corrected Calcium 9.7 mg/dL (8.5-10.1) 11/05/19 05:14 Magnesium 2.1 mg/dL (1.7-2.9) 11/04/19 05:31 Total Bilirubin 0.70 mg/dL (0.2-1.0) 11/05/19 05:14 AST 81 Units/L (15-37) H 11/05/19 05:14 ALT 38 Units/L (12-78) 11/05/19 05:14 Alkaline Phosphatase 137 Units/L (46-116) H 11/05/19 05:14 Ammonia 14 umol/L (11-32) 11/03/19 10:59 Total Protein 5.1 g/dL (6.4-8.2) L 11/05/19 05:14 Albumin 1.9 g/dL (3.4-5.0) L 11/05/19 05:14 Globulin 3.2 g/dL (2.5-4.5) 11/05/19 05:14 Albumin/Globulin Ratio 0.6 Ratio (1.1-2.1) L 11/05/19 05:14 Specimen Type Catherized urine 11/04/19 17:55 Urine Color Dark yellow (YELLOW) 11/04/19 17:55 Urine Appearance Hazy (CLEAR) 11/04/19 17:55 Urine pH 5.0 (5.0 - 8.0) 11/04/19 17:55 Ur Specific [place] 1.030 (1.000-1.030) 11/04/19 17:55 Urine Protein 3+ (NEGATIVE) 11/04/19 17:55 Urine Glucose (UA) 1+ (NEGATIVE) 11/04/19 17:55 Urine Ketones 2+ (NEGATIVE) 11/04/19 17:55 Urine Occult Blood 4+ (NEGATIVE) 11/04/19 17:55 Urine Nitrite Positive (NEGATIVE) 11/04/19 17:55 Urine Bilirubin 1+ (NEGATIVE) 11/04/19 17:55 Urine Urobilinogen 1+ (NORMAL) 11/04/19 17:55 Ur Leukocyte Esterase 2+ (NEGATIVE) 11/04/19 17:55 Urine RBC 10-20 /HPF (0-3) A 11/04/19 17:55 Urine WBC 5-10 /HPF (0-5) A 11/04/19 17:55 Ur Squamous Epith Cells Few /HPF (NEGATIVE) 11/04/19 17:55 Urine Bacteria 3+ /HPF (NEGATIVE) 11/04/19 17:55 Urine Mucus Few /HPF (NEGATIVE) 11/04/19 17:55 Ur Culture Indicated? Yes/culture set up 11/04/19 17:55 Urine Osmolality 612 mOsm/kg (50-800) 11/02/19 21:11 Ur Random Sodium < 50 mmol/L (40-220) 11/02/19 21:11 Urine Creatinine 137.01 mg/dL (40-278) 11/02/19 21:11 Influenza Type A (PCR) Negative (NEGATIVE) 11/04/19 17:55 Influenza Type B (PCR) Negative (NEGATIVE) 11/04/19 17:55 Reason For Visit: RESP FAILURE Discharge Date Discharge Date: 11/05/19 Discharge Diagnosis All Active Problems (Updated 11/04/19 @ 15:34 by Toña Chen) AMS (altered mental status) (Acute) Warfarin-induced coagulopathy (Acute) Medication induced coagulopathy (Acute) Hypokalemia (Acute) Hypernatremia (Acute) Sacral decubitus ulcer (Acute) Generalized weakness (Acute) Diabetes (Chronic) Aspiration pneumonia (Acute) MICH (acute kidney injury) (Acute) Hx pulmonary embolism (Acute) Fall (Acute) GI bleed (Acute) Cellulitis and abscess of foot (Acute) Mechanical heart valve present (Acute) Cirrhosis (Acute) Arthritis (Acute) Knee pain, right (Acute) Diarrhea (Acute) Acute dehydration (Acute) Abdominal pain (Acute) SOB (shortness of breath) (Acute) Hypertension (Acute) CHF (congestive heart failure) (Acute) Abnormal weight gain (Acute) Diabetes (Acute) Acute hyponatremia (Acute) Chronic kidney disease (CKD) stage G5/A1, glomerular filtration rate (GFR) less than or equal to 15 mL/min/1.73 square meter and albuminuria creatinine ratio less than 30 mg/g (Chronic) Edema due to hypoalbuminemia (Acute) Anemia (Acute) Blood transfusion during current hospitalization (Acute) Prolonged Q-T interval on ECG (Acute) Plan of Treatment: Continue with present treatment and follow up plan. Pt is to keep follow up appointment as instructed and take medications as ordered. Discharge Medications Discharge Medications: minocycline Allergy (Verified 08/11/19 19:32) rifampin Allergy (Verified 08/11/19 19:32) New Prescriptions fentanyl [Duragesic] 1 patch TRANSDERMAL Q72H #10 ea MDD 1 11/05/19 [Rx] lorazepam [Ativan] 0.5 mg PO Q4H PRN #180 tab MDD 3 11/05/19 [Rx] morphine concentrate 10 mg SUBLINGUAL Q2H PRN #1 ml MDD 12 11/05/19 [Rx] Discharge Disposition Discharge Disposition: [facility]
[2019-11-05] MEDS ORDERED: DURAGESIC 75 mcg/HR PATCH TD SCH (14:00)
[2019-11-05] MEDS ORDERED: FLOMAX PO SCH (21:00)
== END 2019-11-05 14:10 | DRG 640 ==
LOC: MED/SURG → OBSVTOIN 13:00
PROVIDERS: ADMIT Internal Medicine; ATTEND Internal Medicine
DX: D64.89 Other specified anemias; I48.91 Unspecified atrial fibrillation; E87.0 Hyperosmolality and hypernatremia; R26.89 Other abnormalities of gait and mobility; N17.9 Acute kidney failure, unspecified; E87.6 Hypokalemia; E11.65 Type 2 diabetes mellitus with hyperglycemia; J96.00 Acute respiratory failure, unspecified whether with hypoxia or hypercapnia; J69.0 Pneumonitis due to inhalation of food and vomit; Z79.4 Long term (current) use of insulin; R13.11 Dysphagia, oral phase; N18.9 Chronic kidney disease, unspecified; L89.159 Pressure ulcer of sacral region, unspecified stage; D68.32 Hemorrhagic disorder due to extrinsic circulating anticoagulants; K56.690 Other partial intestinal obstruction; T45.515A Adverse effect of anticoagulants, initial encounter; R53.1 Weakness; Z86.711 Personal history of pulmonary embolism; Z95.2 Presence of prosthetic heart valve; K74.60 Unspecified cirrhosis of liver; E11.22 Type 2 diabetes mellitus with diabetic chronic kidney disease; Z66 Do not resuscitate
CPT/HCPCS: 36415; 71010; 71045; 74000; 74018; 80048; 80053; 81001; 82140; 82570; 83605; 83735; 83935; 84132; 84300; 85025; 85610; 85730; 87040; 87070; 87086; 87205; 87502; 92526; 94640; 94760; 97162; 97166; 97530; A4222; J0692; J0696; J1815; J1940; J2060; J2270; J3480; J3490; J7050; J7620; S5010; S5012